=== PATIENT | male | born 1990 | race Caucasian/White ===

== ENCOUNTER 2016-10-10 13:07 | Inpatient (IN) | payer MEDICAID ==
[2016-10-10 13:21] VITALS: BMI 25.8
[2016-10-10 13:50] LABS: EOS % 0.1 % (1.5-5.0); GRAN # 4.84 (1.4-6.5); GRAN % 64.5 % (50.0-68.0); HEMATOCRIT 42.9 % (42.0-52.0); LYMPH # 2.3 (1.2-3.4); LYMPH % 30.9 % (22.0-35.0); MEAN CELL VOLUME 77.2 fl (80.0-105.0); MEAN CORPUSCULAR HGB CONC 37.5 g/dl (31.0-37.0); MEAN PLATELET VOLUME 10.1 fl (7.0-11.0); MONO # 0.3 (0.1-0.6); MONO % 4.5 % (1.0-6.0); RED CELL DISTRIBUTION WIDTH 13.2 % (11.5-14.5); WHITE BLOOD COUNT 7.5 10^3/ul (4.5-11.0)
--- NOTE | 2016-10-10 13:52 | ED PDOC ---
Arrival/HPI - General Chief Complaint: Psychiatric Evaluation Time Seen by Provider: 10/10/16 13:35 Historian: Patient - History of Present Illness Narrative History of Present Illness (Text): 10/10/16 13:49 Chidi Bell is a 26 year old male who presents to the emergency department for evaluation of IV drug use and suicidal ideation. States he used heroin yesterday and plans to end his life by overdosing on heroin. Denies any homicidal ideation. Denies any somatic complaints. Symptom Course: Unchanged Activities at Onset: Light Context: Home Past Medical History - Provider Review Nursing Documentation Reviewed: Yes - Infectious Disease Hx of Infectious Diseases: None - Psychiatric Hx Anxiety: Yes Hx Depression: Yes Hx Substance Use: Yes Other/Comment: substance abuse - Anesthesia Hx Anesthesia: No Family/Social History - Physician Review Nursing Documentation Reviewed: Yes Family/Social History: No Known Family HX Smoking Status: Heavy Smoker > 10 Cigarettes Daily Hx Alcohol Use: Yes Frequency of alcohol use: Daily Hx Substance Use: Yes Substance used: heroine iv -- last used 10/09/2016 Allergies/Home Meds Allergies/Adverse Reactions: Allergies No Known Allergies Allergy (Verified 10/10/16 13:21) Home Medications: Home Meds Medication Instructions Recorded Confirmed No Known Home Med 10/10/16 10/10/16 Review of Systems - Physician Review All systems were reviewed & negative as marked: Yes - Review of Systems Constitutional: Normal. absent: Fatigue, Fevers Respiratory: Normal. absent: SOB, Cough Cardiovascular: Normal. absent: Chest Pain, Palpitations Gastrointestinal: Normal. absent: Abdominal Pain, Diarrhea, Nausea, Vomiting Neurological: Normal. absent: Headache, Dizziness Psychiatric: Suicidal Ideation Physical Exam Vital Signs Reviewed: Yes Vital Signs Temp Pulse Resp BP Pulse Ox 10/10/16 15:30 56 L 12 100/62 99 10/10/16 13:27 97.8 F 71 18 103/72 95 Temperature: Afebrile Blood Pressure: Normal Pulse: Regular Respiratory Rate: Normal Appearance: Positive for: Well-Appearing, Non-Toxic, Comfortable Pain Distress: None Mental Status: Positive for: Alert and Oriented X 3 - Systems Exam Head: Present: Atraumatic, Normocephalic Pupils: Present: PERRL Conjunctiva: Present: Normal Mouth: Present: Moist Mucous Membranes Respiratory/Chest: Present: Clear to Auscultation, Good Air Exchange. No: Respiratory Distress, Accessory Muscle Use Cardiovascular: Present: Regular Rate and Rhythm, Normal S1, S2. No: Murmurs Abdomen: Present: Normal Bowel Sounds. No: Tenderness, Distention, Peritoneal Signs Upper Extremity: Present: Normal Inspection. No: Cyanosis, Edema Lower Extremity: Present: Normal Inspection. No: Edema Neurological: Present: GCS=15, CN II-XII Intact, Speech Normal Skin: Present: Warm, Dry, Normal Color. No: Rashes Psychiatric: Present: Alert, Oriented x 3, Suicidal Ideation. No: Agitated, Homicidal Ideation Medical Decision Making ED Course and Treatment: 10/10/16 13:54 Impression: A 26 year old male who presents to the emergency department complaining of suicidal ideation. Reports last IV heroin use was yesterday. Plan: -- EKG -- Labs -- Drug Screen -- Chest X-ray -- Urinalysis -- Reassess and disposition Progress Notes: 10/10/16 13:55 EKG interpreted by me: Sinus Bradycardia @ 53 bpm. No STT wave changes. 10/10/16 15:12 pt medicaly cleared. - Lab Interpretations Lab Results: 10/10/16 13:35 10/10/16 13:35 Lab Results 10/10/16 14:50: Urine Opiates Screen Positive H, Urine Methadone Screen Negative , Ur Barbiturates Screen Negative, Ur Phencyclidine Scrn Negative, Ur Amphetamines Screen Negative, U Benzodiazepines Scrn Positive H, U Oth Cocaine Metabols Negative, U Cannabinoids Screen Positive H 10/10/16 14:50: Urine Color Yellow, Urine Appearance Sl cloudy, Urine pH 7.0, Ur Specific [place] 1.025, Urine Protein 30 H, Urine Glucose (UA) Negative, Urine Ketones Negative, Urine Blood Negative, Urine Nitrate Negative, Urine Bilirubin Negative, Urine Urobilinogen 1.0 H, Ur Leukocyte Esterase Negative, Urine RBC Negative, Urine WBC Negative, Calcium Oxalate Crystal Occ, Urine Other Mucus 10/10/16 13:35: Alcohol, Quantitative < 10 10/10/16 13:35: Salicylates < 1 L, Acetaminophen < 10.0 L 10/10/16 13:35: Sodium 143, Potassium 4.3, Chloride 105, Carbon Dioxide 25, Anion Gap 17, BUN 9, Creatinine 0.7, Est GFR ( Amer) > 60, Est GFR (Non- Af Amer) > 60, Random Glucose 130 H, Calcium 9.6, Total Bilirubin 0.5, AST 86 H , ALT 207 H, Alkaline Phosphatase 66, Total Protein 8.4 H, Albumin 4.9 H, Globulin 3.5, Albumin/Globulin Ratio 1.4 10/10/16 13:35: WBC 7.5, RBC 5.56, Hgb 16.1, Hct 42.9, MCV 77.2 L, MCH 29.0, MCHC 37.5 H, RDW 13.2, Plt Count 211, MPV 10.1, Gran % 64.5, Lymph % (Auto) 30.9 , [place] % (Auto) 4.5, Eos % (Auto) 0.1 L, Baso % (Auto) 0.0, Gran # 4.84, Lymph # 2.3, [place] # 0.3, Eos # 0.0, Baso # 0.00 - RAD Interpretation Radiology Orders: 10/10/16 13:40 CHEST PORTABLE [RAD] Stat - Medication Orders Current Medication Orders: Discontinued Medications Chlordiazepoxide (Librium) 50 mg PO STAT STA PRN Reason: Protocol Stop: 10/10/16 14:48 Last Admin: 10/10/16 15:48 Dose: 50 mg - Scribe Statement The provider has reviewed the documentation as recorded by the Dejan Noel Provider Attestation: Provider Scribe Attestation: All medical record entries made by the Kbibvernell were at my direction and personally dictated by me. I have reviewed the chart and agree that the record accurately reflects my personal performance of the history, physical exam, medical decision making, and the department course for this patient. I have also personally directed, reviewed, and agree with the discharge instructions and disposition. Disposition/Present on Arrival - Present on Arrival Any Indicators Present on Arrival: No History of DVT/PE: No History of Uncontrolled Diabetes: No Urinary Catheter: No History of Decub. Ulcer: No History Surgical Site Infection Following: None - Disposition Have Diagnosis and Disposition been Completed?: Yes Diagnosis: Depression Disposition: HOSPITALIZED Disposition Time: 15:53 Condition: STABLE
[2016-10-10 13:59] LABS: ALB/GLOB RATIO 1.4 (1.1-1.8); ALKALINE PHOSPHATASE 66 U/L (38-133); ALT/SGPT 207 U/L (7-56); AST/SGOT 86 U/L (15-59); BILIRUBIN,TOTAL 0.5 mg/dL (0.2-1.3); BLOOD UREA NITROGEN 9 mg/dL (7-21); CALCIUM 9.6 mg/dL (8.4-10.5); CARBON DIOXIDE 25 mmol/L (21-33); CHLORIDE 105 mmol/L (98-107); GFR AFRICAN-AMERICAN > 60; GLUCOSE,RANDOM 130 mg/dL (70-110); POTASSIUM 4.3 mmol/L (3.6-5.0); SODIUM 143 mmol/L (132-148); TOTAL PROTEIN 8.4 g/dL (5.8-8.3)
--- NOTE | 2016-10-10 14:14 | RAD ---
HISTORY: psych COMPARISON: No prior. FINDINGS: LUNGS: No active pulmonary disease. PLEURA: No significant pleural effusion identified, no pneumothorax apparent. CARDIOVASCULAR: Normal. OSSEOUS STRUCTURES: No significant abnormalities. VISUALIZED UPPER ABDOMEN: Normal. OTHER FINDINGS: None. IMPRESSION: No active disease.
[2016-10-10 15:10] LABS: URINE BILIRUBIN NEGATIVE (NEGATIVE); URINE BLOOD NEGATIVE (NEGATIVE); URINE GLUCOSE (UA) NEGATIVE (NEGATIVE); URINE KETONE NEGATIVE (NEGATIVE); URINE LEUKOCYTE ESTERASE NEGATIVE Leu/uL (NEGATIVE); URINE PROTEIN 30 mg/dL (<30 mg/dL)
[2016-10-10 15:11] LABS: URINE APPEARANCE SL CLOUDY (CLEAR); URINE COLOR YELLOW (YELLOW)
[2016-10-10 15:12] LABS: URINE RBC NEGATIVE /hpf (0-2); URINE WBC NEGATIVE /hpf (0-6)
[2016-10-10 15:13] LABS: URINE CALCIUM OXALATE CRYSTALS OCC /hpf
[2016-10-10 16:19] VITALS: O2SAT 100
--- NOTE | 2016-10-10 16:25 | CARD ---
APPROVED REPORT EKG Measurement Heart [id number] <Conclusion> Normal sinus rhythm Early repolarization Normal ECG
--- NOTE | 2016-10-10 22:10 | PCM.BM ---
Treatment Plan Problems - Problems identified on initial assessmt anxiety level for substance abuse Date Initiated: 10/10/16 Time Initiated: 22:07 Assessment reference: NA Status: Active Priority: 1 knowledge deficit alc ohol use Date Initiated: 10/10/16 Time Initiated: 22:10 Assessment reference: NA Status: Active Priority: 2 high risk vilence Date Initiated: 10/10/16 Time Initiated: 22:12 Assessment reference: HP, PE, SW, AT, NA, Other Status: Active Priority: 3 Treatment assets and liabiliti Patient Assests: adapts well, ADL independent, negotiates basic needs Patient Liabilities: live alone, relationship conflicts, substance abuse - Milieu Protocol Maintain good personal hygiene: daily Encourage regular showers, daily Remind patient to perform daily oral care, daily Assist patient to perform ADL's Conduct patient checks and document Observation sheet: Q15 minutes Maintain personal safety: every shift Educate patient to report safety concerns to staff, every shift Monitor environment for contraband/sharps Medication safety: Monitor for expected outcome, potential side effects: every shift, Assess barriers to learning: every shift, Assess readiness for medication education: every shift Discharge/Continuing Care - Education Needs Education Needs: Patient Medication, Patient Diagnosis/Disease Process, Patient Coping Skills, Patient Community resources - Discharge Discharge Criteria: Tolerates medication w/o severe side effects, Free of Suicidal thoughts, Normal sleep pattern
[2016-10-11 08:55] LABS: CHOLESTEROL 139 mg/dL (130-200); GLUCOSE,FASTING 107 mg/dL (65-110)
--- NOTE | 2016-10-11 09:12 | PCM.PSYCH ---
Initial Psychiatric Evaluation - Initial Psychiatric Evaluation Type of Admission: Voluntary Legal Status: Capacity Chief Complaint (in patient's own words): depressed, suicidal History of Present Illness and Precipitating Events: Patient is a 26 year old male with history of depression and opiate dependency who presented to the emergency department for suicidal ideation in context of ongoing IV heroin use. ER records indicate that he planned to end his life by overdosing on heroin. I met with patient at bedside. He is alert and oriented x3. Patient indicates increasing feelings of depression and hopelessness in the weeks prior to admission. Endorses symptoms of low energy, lack of motivation, poor sleep and anhedonia. Patient also reported that heroin use also escalated during this time and he had suicidal thoughts of killing himself by overdose. Presently he feels safe and denies any current suicidal or homicidal thoughts. Patient is tolerating current medications and reports that he slept well last night. Doesn't appear to be any discomfort or distress. There were no behavioral issues overnight. PSYCHIATRIC HISTORY Patient denies any prior psychiatric hospital stations Patient denies any history of suicide attempts. Patient saw a private psychiatrist on one occasion in September 2015. He was prescribed medications which he did not take. SOCIAL HISTORY Patient was born and raised in [place]. He is single. He has no children. He lives by himself. He graduated high school. Patient denies any history of legal issues. Patient reports a one-year history of opiate dependency. Indicates that he uses up to 50 bags of heroin IV daily. His last use was two days ago. Patient also reports that he drinks approximately half a fifth of ben daily. Patient has been addicted to alcohol for over two years. Pt smokes about 1 1/2 packs of cigarettes a day. Counseling provided, morbidity and mortality risks were reviewed. Nicotine patch offered which patient accepted. Current Medications: Active Medications Generic Name Dose Route Start Last Admin Trade Name Freq PRN Reason Stop Dose Admin Clonazepam 1 mg 10/11/16 08:00 Klonopin PO BID JOAN Protocol Clonazepam 1 mg 10/10/16 22:00 10/10/16 22:00 Klonopin PO Not Given HS JOAN Lorazepam 0.5 mg 10/10/16 17:35 Ativan PO Q4 PRN Anxiety Protocol Methadone HCl 15 mg 10/11/16 08:00 Methadone PO 10/11/16 08:01 DAILY ONE Methadone HCl 10 mg 10/12/16 08:00 Methadone PO 10/12/16 08:01 DAILY ONE Methadone HCl 5 mg 10/13/16 08:00 Methadone PO 10/13/16 08:01 DAILY ONE Quetiapine Fumarate 100 mg 10/10/16 22:00 10/10/16 21:19 Seroquel PO 100 mg HS JOAN Administration Protocol Sertraline HCl 50 mg 10/11/16 08:00 Zoloft PO DAILY JOAN Trazodone HCl 50 mg 10/10/16 22:00 10/10/16 21:19 Desyrel PO 50 mg HS JOAN Administration Past Psychiatric History - Past Psychiatric History Pertinent Medical Hx (Current Medical&Sleep Prob, Allergies): Allergies Allergy/AdvReac Type Severity Reaction Status Date / Time No Known Allergies Allergy Verified 10/10/16 22:19 No Known Home Med 10/10/16 Mental Status Examination - Personal Presentation Personal Presentation: Looks stated age - Affect Affect: Constricted - Motor Activity Motor Activity: Calm - Reliability in Providing Information Reliability in Providing Information: Fair - Speech Speech: Organized - Mood Mood: Depressed, Anxious - Formal Thought Process Formal Thought Process: No Impairment - Obsessions/Compulsions Obsessions: No Compulsions: No - Cognitive Functions Orientation: Person, Place, Situation Sensorium: Alert Estimate of Intelligence: Average Judgement: Imparied, as evidence by: Poor judgement, Imparied, as evidence by: Lack of insight into illness - Risk Risk: Suicidal, Seizure, Withdrawal, Diminished functioning DSM 5 DX - DSM 5 DSM 5 Diagnosis: Bipolar Depression Opiate Use Disorder, Severe Cannabis Use Disorder Anxiety DO NOS - Recommended/Plan of Treatment Treatment Recommendations and Plan of Treatment: * group, milieu and supportive tx * Seroquel 100 mg HS for mood control * Klonopin 1 mg po TID for anxiety, will also help with alcohol withdrawal * Zoloft 50 mg po daily for depression and anxiety * Trazodone 50 mg po HS for insomnia, off label and depression * Methadone taper, 15 mg on 10/11/16, 10 mg on 10/12/16 and 5 mg on 10/13/16. * Awaiting medical consult * Vitals reviewed and noted below: Selected Entries 10/10/16 10/10/16 10/10/16 13:27 15:30 16:19 Temperature 97.8 F Pulse Rate 71 56 L 68 Respiratory 18 12 18 Rate Blood Pressure 103/72 100/62 106/70 ER LABS AND STUDIES 10/10/16 13:55 EKG interpreted by me: Sinus Bradycardia @ 53 bpm. No STT wave changes. 10/10/16 14:50: Urine Opiates Screen Positive H, Urine Methadone Screen Negative , Ur Barbiturates Screen Negative, Ur Phencyclidine Scrn Negative, Ur Amphetamines Screen Negative, U Benzodiazepines Scrn Positive H, U Oth Cocaine Metabols Negative, U Cannabinoids Screen Positive H 10/10/16 14:50: Urine Color Yellow, Urine Appearance Sl cloudy, Urine pH 7.0, Ur Specific [place] 1.025, Urine Protein 30 H, Urine Glucose (UA) Negative, Urine Ketones Negative, Urine Blood Negative, Urine Nitrate Negative, Urine Bilirubin Negative, Urine Urobilinogen 1.0 H, Ur Leukocyte Esterase Negative, Urine RBC Negative, Urine WBC Negative, Calcium Oxalate Crystal Occ, Urine Other Mucus 10/10/16 13:35: Alcohol, Quantitative < 10 10/10/16 13:35: Salicylates < 1 L, Acetaminophen < 10.0 L 10/10/16 13:35: Sodium 143, Potassium 4.3, Chloride 105, Carbon Dioxide 25, Anion Gap 17, BUN 9, Creatinine 0.7, Est GFR ( Amer) > 60, Est GFR (Non- Af Amer) > 60, Random Glucose 130 H, Calcium 9.6, Total Bilirubin 0.5, AST 86 H , ALT 207 H, Alkaline Phosphatase 66, Total Protein 8.4 H, Albumin 4.9 H, Globulin 3.5, Albumin/Globulin Ratio 1.4 10/10/16 13:35: WBC 7.5, RBC 5.56, Hgb 16.1, Hct 42.9, MCV 77.2 L, MCH 29.0, MCHC 37.5 H, RDW 13.2, Plt Count 211, MPV 10.1, Gran % 64.5, Lymph % (Auto) 30.9 , [place] % (Auto) 4.5, Eos % (Auto) 0.1 L, Baso % (Auto) 0.0, Gran # 4.84, Lymph # 2.3, [place] # 0.3, Eos # 0.0, Baso # 0.00 FLOOR LABS 10/11/16 07:30 Fasting Glucose 107 Triglycerides 94 Cholesterol 139 LDL Cholesterol Direct 81 HDL Cholesterol 37 - Smoking Cessation Smoking Cessation Initiated: Yes
--- NOTE | 2016-10-11 11:18 | CP.PCM.CON ---
<IGNACIA HERNÁNDEZ - Last Filed: 10/11/16 11:05> History of Present Illness - History of Present Illness History of Present Illness: CC: Suicidal ideation HPI: 26 yo M with PMHx of hepatitis C presents with suicidal ideation and IV drug abuse. Pt came to [place] on his own volition. Pt admits to IV heroin abuse and frequent "black-outs". Pt states that he planned to end his life by overdosing on heroin. Pt denies homicidal ideation. Pt c/o of dull body aches and abdominal pain for the last day. Pt complains of nausea and vomiting x1 and diarrhea x6 since yesterday. Pt denies any recent sick contacts. Pt denies any alleviating or aggravating factors. Pt states that his doctor is evaluating and treating him for hepatitis C. Pt denies CP, SOB, chills, fever, WINTERS, vertigo, tremors, constipation, sweats, or dysuria. PMHx: Hepatitis C Surg: Denied FHx: Denied All: NKDA SH: Admits to heavy EtOH use (Bridgette), 2 ppd tobacco use, and IV heroin use Meds: Denied Review of Systems - Review of Systems All systems: reviewed and no additional remarkable complaints except (12 point ROS negative other than what is stated in HPI) Past Patient History - Infectious Disease Hx of Infectious Diseases: None - Past Social History Smoking Status: Heavy Smoker > 10 Cigarettes Daily - CARDIAC Hx Cardiac Disorders: No Hx Hypertension: No - PULMONARY Hx Tuberculosis: No - NEUROLOGICAL HX Cerebrovascular Accident: No Hx Seizures: No - HEENT Hx HEENT Problems: No - RENAL Hx Chronic Kidney Disease: No - ENDOCRINE/METABOLIC Hx Endocrine Disorders: No - HEMATOLOGICAL/ONCOLOGICAL Hx Cancer: No Hx Human Immunodeficiency Virus (HIV): No - INTEGUMENTARY Hx Dermatological Problems: No - MUSCULOSKELETAL/RHEUMATOLOGICAL Hx Musculoskeletal Disorders: No - GASTROINTESTINAL Hx Gastrointestinal Disorders: No - GENITOURINARY/GYNECOLOGICAL Hx Genitourinary Disorders: No Hx Sexually Transmitted Disorders: No - PSYCHIATRIC Hx Anxiety: Yes Hx Substance Use: Yes - SURGICAL HISTORY Hx Surgeries: No - ANESTHESIA Hx Anesthesia: No Meds Allergies/Adverse Reactions: Allergies Allergy/AdvReac Type Severity Reaction Status Date / Time No Known Allergies Allergy Verified 10/10/16 22:19 - Medications Medications: Current Medications Clonazepam (Klonopin) 1 mg PO HS JOAN Clonazepam (Klonopin) 1 mg PO BID JOAN PRN Reason: Protocol Last Admin: 10/11/16 09:02 Dose: 1 mg Lorazepam (Ativan) 0.5 mg PO Q4 PRN; Protocol PRN Reason: Anxiety Methadone HCl (Methadone) 10 mg PO DAILY ONE Stop: 10/12/16 08:01 Methadone HCl (Methadone) 5 mg PO DAILY ONE Stop: 10/13/16 08:01 Nicotine (Nicoderm Cq) 1 patch TD DAILY [facility] Quetiapine Fumarate (Seroquel) 100 mg PO HS [facility] PRN Reason: Protocol Last Admin: 10/10/16 21:19 Dose: 100 mg Sertraline HCl (Zoloft) 50 mg PO DAILY [facility] Last Admin: 10/11/16 09:03 Dose: 50 mg Trazodone HCl (Desyrel) 50 mg PO HS [facility] Last Admin: 10/10/16 21:19 Dose: 50 mg Physical Exam - Constitutional Appears: No Acute Distress - Head Exam Head Exam: ATRAUMATIC, NORMOCEPHALIC - Eye Exam Eye Exam: EOMI, PERRL - ENT Exam ENT Exam: Mucous Membranes Moist - Neck Exam Neck exam: Positive for: Full Rom. Negative for: Lymphadenopathy, Tenderness, Thyromegaly - Respiratory Exam Respiratory Exam: Clear to Auscultation Bilateral. absent: Rales, Rhonchi, Wheezes - Cardiovascular Exam Cardiovascular Exam: RRR. absent: Diastolic murmur, Gallop, Rubs, Systolic Murmur - GI/Abdominal Exam GI & Abdominal Exam: Soft, Tenderness (dull). absent: Distended, Guarding, Rebound - Extremities Exam Extremities exam: Positive for: pedal pulses present Additional comments: Track kiser on b/l antecubital regions - Neurological Exam Neurological exam: Alert, Oriented x3 - Psychiatric Exam Psychiatric exam: Depressed, Suicidal Ideation - Skin Skin Exam: Dry, Intact, Normal Color, Warm Results - Vital Signs Recent Vital Signs: Last Vital Signs Temp 97.8 F 10/10/16 13:27 Pulse 60 10/10/16 21:09 Resp 20 10/10/16 21:09 BP 106/70 10/10/16 16:19 Pulse Ox 100 10/10/16 16:19 - Labs Result Diagrams: 10/10/16 13:35 10/10/16 13:35 Labs: Laboratory Results - last 24 hr 10/11/16 10/11/16 07:30 07:30 Fasting Glucose 107 Triglycerides 94 Cholesterol 139 LDL Cholesterol Direct 81 HDL Cholesterol 37 TSH 3rd Generation 0.85 Assessment & Plan - Assessment and Plan (Free Text) Assessment: 26 yo M with PMHx of hepatitis C and drug abuse admitted for evaluation and treatment of suicidal ideation and IV drug abuse. Plan: 1. Suicidal Ideation - Defer treatment plan to psych - Continue psych medications 2. Substance abuse with possible withdrawal - Ativan 0.5 mg PO Q4H PRN for withdrawal - Cont methadone per psych - Counselled pt on risks of IV use and advised cessation - Monitor for signs of withdrawal 3. Tobacco abuse - Counselled pt on risks of tobacco use and advised cessation - Cont Nicotine patch 4. Alcohol abuse - Counselled pt on risks of EtOH use and advised cessation 5. H/o Hepatitis C, abdominal pain - Regular diet - Elevated LFT's, cont trend - F/u Hep panel - Protonix PO GI/DVT PPx - Protonix PO - Ambulate Pt was seen and discussed in detail with Dr. Shane. <Jordyn Shane - Last Filed: 10/11/16 11:44> Meds - Medications Medications: Current Medications Clonazepam (Klonopin) 1 mg PO HS JOAN Clonazepam (Klonopin) 1 mg PO BID JOAN PRN Reason: Protocol Last Admin: 10/11/16 09:02 Dose: 1 mg Lorazepam (Ativan) 0.5 mg PO Q4 PRN; Protocol PRN Reason: Anxiety Methadone HCl (Methadone) 10 mg PO DAILY ONE Stop: 10/12/16 08:01 Methadone HCl (Methadone) 5 mg PO DAILY ONE Stop: 10/13/16 08:01 Nicotine (Nicoderm Cq) 1 patch TD DAILY JOAN Pantoprazole Sodium (Protonix Ec Tab) 40 mg PO ACB JOAN Quetiapine Fumarate (Seroquel) 100 mg PO HS JOAN PRN Reason: Protocol Last Admin: 10/10/16 21:19 Dose: 100 mg Sertraline HCl (Zoloft) 50 mg PO DAILY JOAN Last Admin: 10/11/16 09:03 Dose: 50 mg Trazodone HCl (Desyrel) 50 mg PO HS JOAN Last Admin: 10/10/16 21:19 Dose: 50 mg Results - Vital Signs Recent Vital Signs: Last Vital Signs Temp 97.8 F 10/10/16 13:27 Pulse 60 10/10/16 21:09 Resp 20 10/10/16 21:09 BP 106/70 10/10/16 16:19 Pulse Ox 100 10/10/16 16:19 - Labs Result Diagrams: 10/10/16 13:35 10/10/16 13:35 Labs: Laboratory Results - last 24 hr 10/11/16 10/11/16 07:30 07:30 Fasting Glucose 107 Triglycerides 94 Cholesterol 139 LDL Cholesterol Direct 81 HDL Cholesterol 37 TSH 3rd Generation 0.85 Attending/Attestation - Attestation I have personally seen and examined this patient.: Yes I have fully participated in the care of the patient.: Yes I have reviewed all pertinent clinical information: Yes Notes (Text): 10/11/16 11:37 MEDICAL CONSULTATION 26 year old male with past medical history of hepatitis C, alcohol and substance abuse who presented with suicidal ideation and evaluation for substance withdrawal. Continue with ativan prn and methadone taper for withdrawal symptoms as per psychiatry. He was counselled on risks of continued substance abuse and on alcohol abstinence. GI complaints likely secondary to withdrawal and ETOH as above. Continue with supportive care. Continue with diet as tolerated and protonix. Elevated LFTs likely secondary to history of alcohol abuse and hepatitis C. Hepatitis panel and HIV testing is ordered. Recommended close follow up as outpatient with his physician in [place] or with [facility] hepatitis clinic. Jordyn Shane MD Hospitalist.
[2016-10-12 06:58] VITALS: BP 106/66; PULSE 55; RESP 19; TEMP 97.6
[2016-10-12] MEDS ORDERED: Pantoprazole 40 mg EC Tab PO SCH (07:30)
--- NOTE | 2016-10-12 15:07 | PCM.PYCHPN ---
Psychiatric Progress Note - Psychiatric Progress Note Patient seen today, length of contact: 25 min Patient Chief Complaint: depressed, suicidal Problems Identified/Issues Discussed: History of Present Illness and Precipitating Events: Patient is a 26 year old male with history of depression and opiate dependency who presented to the emergency department for suicidal ideation in context of ongoing IV heroin use. ER records indicate that he planned to end his life by overdosing on heroin. I met with patient at bedside. He is alert and oriented x3. Patient indicates increasing feelings of depression and hopelessness in the weeks prior to admission. Endorses symptoms of low energy, lack of motivation, poor sleep and anhedonia. Patient also reported that heroin use also escalated during this time and he had suicidal thoughts of killing himself by overdose. Presently he feels safe and denies any current suicidal or homicidal thoughts. Patient is tolerating current medications and reports that he slept well last night. Doesn't appear to be any discomfort or distress. There were no behavioral issues overnight. PSYCHIATRIC HISTORY Patient denies any prior psychiatric hospital stations Patient denies any history of suicide attempts. Patient saw a private psychiatrist on one occasion in September 2015. He was prescribed medications which he did not take. SOCIAL HISTORY Patient was born and raised in [place]. He is single. He has no children. He lives by himself. He graduated high school. Patient denies any history of legal issues. Patient reports a one-year history of opiate dependency. Indicates that he uses up to 50 bags of heroin IV daily. His last use was two days ago. Patient also reports that he drinks approximately half a fifth of ben daily. Patient has been addicted to alcohol for over two years. Pt smokes about 1 1/2 packs of cigarettes a day. Counseling provided, morbidity and mortality risks were reviewed. Nicotine patch offered which patient accepted. Diagnostic Results: Bipolar Depression Opiate Use Disorder, Severe Cannabis Use Disorder Anxiety DO NOS Mental Status Examination - Cognitive Function Orientation: Person, Place, Situation - Mood Mood: Depressed, Anxious - Affect Affect: Constricted - Formal Thought Process Formal Thought Process: No Impairment - Homicidal Ideation Homicidal Ideation: No Goal/Treatment Plan - Goal/Treatment Plan Progress Toward Problem(s) and Goals/Treatment Plan: * group, milieu and supportive tx * Seroquel 100 mg HS for mood control * Klonopin 1 mg po TID for anxiety, will also help with alcohol withdrawal * Zoloft 50 mg po daily for depression and anxiety * Trazodone 50 mg po HS for insomnia, off label and depression * Methadone taper, 15 mg on 10/11/16, 10 mg on 10/12/16 and 5 mg on 10/13/16. * Apppreciate f/u by Dr. Shane on 10/11/16 * Vitals reviewed and noted below: Selected Entries 10/10/16 10/10/16 10/10/16 13:27 15:30 16:19 Temperature 97.8 F Pulse Rate 71 56 L 68 Pulse Rate [ Radial] Pulse Rhythm [ Radial] Pulse Strength [Radial] Pulse Assessment Method [Radial] Respiratory 18 12 18 Rate Blood Pressure 103/72 100/62 106/70 10/10/16 10/11/16 21:09 16:00 Temperature Pulse Rate 61 Pulse Rate [ 60 Radial] Pulse Rhythm [ Regular Radial] Pulse Strength +1=Weak [Radial] Pulse BP Machine Assessment Method [Radial] Respiratory 20 Rate Blood Pressure 109/60 ER LABS AND STUDIES 10/10/16 13:55 EKG interpreted by me: Sinus Bradycardia @ 53 bpm. No STT wave changes. 10/10/16 14:50: Urine Opiates Screen Positive H, Urine Methadone Screen Negative , Ur Barbiturates Screen Negative, Ur Phencyclidine Scrn Negative, Ur Amphetamines Screen Negative, U Benzodiazepines Scrn Positive H, U Oth Cocaine Metabols Negative, U Cannabinoids Screen Positive H 10/10/16 14:50: Urine Color Yellow, Urine Appearance Sl cloudy, Urine pH 7.0, Ur Specific [place] 1.025, Urine Protein 30 H, Urine Glucose (UA) Negative, Urine Ketones Negative, Urine Blood Negative, Urine Nitrate Negative, Urine Bilirubin Negative, Urine Urobilinogen 1.0 H, Ur Leukocyte Esterase Negative, Urine RBC Negative, Urine WBC Negative, Calcium Oxalate Crystal Occ, Urine Other Mucus 10/10/16 13:35: Alcohol, Quantitative < 10 10/10/16 13:35: Salicylates < 1 L, Acetaminophen < 10.0 L 10/10/16 13:35: Sodium 143, Potassium 4.3, Chloride 105, Carbon Dioxide 25, Anion Gap 17, BUN 9, Creatinine 0.7, Est GFR ( Amer) > 60, Est GFR (Non- Af Amer) > 60, Random Glucose 130 H, Calcium 9.6, Total Bilirubin 0.5, AST 86 H , ALT 207 H, Alkaline Phosphatase 66, Total Protein 8.4 H, Albumin 4.9 H, Globulin 3.5, Albumin/Globulin Ratio 1.4 10/10/16 13:35: WBC 7.5, RBC 5.56, Hgb 16.1, Hct 42.9, MCV 77.2 L, MCH 29.0, MCHC 37.5 H, RDW 13.2, Plt Count 211, MPV 10.1, Gran % 64.5, Lymph % (Auto) 30.9 , [place] % (Auto) 4.5, Eos % (Auto) 0.1 L, Baso % (Auto) 0.0, Gran # 4.84, Lymph # 2.3, [place] # 0.3, Eos # 0.0, Baso # 0.00 FLOOR LABS 10/11/16 07:30 Fasting Glucose 107 Triglycerides 94 Cholesterol 139 LDL Cholesterol Direct 81 HDL Cholesterol 37 ~~Patient has 48 hour in effect, expiring 10/12/16 6:45 pm
--- NOTE | 2016-10-12 15:11 | PCM.PYCHDC ---
Mental Status Examination - Mental Status Examination Orientation: Person, Place, Situation Memory: Intact Mood: Neutral Affect: Broad Speech: Appropriate Attention: WNL Concentration: WNL Association: WNL Fund of Knowledge: WNL Formal Thought Process: No Impairment Description of patient's judgement and insight: Fair insight and judgment Psychotic Thoughts and Behaviors: No delusions, no hallucinations, no paranoia Suicidal Ideation: No Current Homicidal Ideation?: No Discharge Summary - Discharge Note Reason for Hospitalization: Patient is a 26 year old male with history of depression and opiate dependency who presented to the emergency department for suicidal ideation in context of ongoing IV heroin use. ER records indicate that he planned to end his life by overdosing on heroin. I met with patient at bedside. He is alert and oriented x3. Patient indicates increasing feelings of depression and hopelessness in the weeks prior to admission. Endorses symptoms of low energy, lack of motivation, poor sleep and anhedonia. Patient also reported that heroin use also escalated during this time and he had suicidal thoughts of killing himself by overdose. Presently he feels safe and denies any current suicidal or homicidal thoughts. Patient is tolerating current medications and reports that he slept well last night. Doesn't appear to be any discomfort or distress. There were no behavioral issues overnight. PSYCHIATRIC HISTORY Patient denies any prior psychiatric hospital stations Patient denies any history of suicide attempts. Patient saw a private psychiatrist on one occasion in September 2015. He was prescribed medications which he did not take. SOCIAL HISTORY Patient was born and raised in [place]. He is single. He has no children. He lives by himself. He graduated high school. Patient denies any history of legal issues. Patient reports a one-year history of opiate dependency. Indicates that he uses up to 50 bags of heroin IV daily. His last use was two days ago. Patient also reports that he drinks approximately half a fifth of ben daily. Patient has been addicted to alcohol for over two years. Pt smokes about 1 1/2 packs of cigarettes a day. Counseling provided, morbidity and mortality risks were reviewed. Nicotine patch offered which patient accepted. Laboratory Data: Abnormal Lab Results 10/11/16 07:30 RPR Nonreactive Laboratory Tests 10/10/16 10/10/16 10/10/16 13:35 13:35 13:35 WBC 7.5 RBC 5.56 Hgb 16.1 Hct 42.9 MCV 77.2 L MCH 29.0 MCHC 37.5 H RDW 13.2 Plt Count 211 MPV 10.1 Gran % 64.5 Lymph % (Auto) 30.9 [place] % (Auto) 4.5 Eos % (Auto) 0.1 L Baso % (Auto) 0.0 Gran # 4.84 Lymph # 2.3 [place] # 0.3 Eos # 0.0 Baso # 0.00 Sodium 143 Potassium 4.3 Chloride 105 Carbon Dioxide 25 Anion Gap 17 BUN 9 Creatinine 0.7 Est GFR ( Amer) > 60 Est GFR (Non-Af Amer) > 60 Random Glucose 130 H Fasting Glucose Calcium 9.6 Total Bilirubin 0.5 AST 86 H ALT 207 H Alkaline Phosphatase 66 Total Protein 8.4 H Albumin 4.9 H Globulin 3.5 Albumin/Globulin Ratio 1.4 Triglycerides Cholesterol LDL Cholesterol Direct HDL Cholesterol TSH 3rd Generation Urine Color Urine Appearance Urine pH Ur Specific [place] Urine Protein Urine Glucose (UA) Urine Ketones Urine Blood Urine Nitrate Urine Bilirubin Urine Urobilinogen Ur Leukocyte Esterase Urine RBC Urine WBC Calcium Oxalate Crystal Urine Other Salicylates < 1 L Urine Opiates Screen Urine Methadone Screen Acetaminophen < 10.0 L Ur Barbiturates Screen Ur Phencyclidine Scrn Ur Amphetamines Screen U Benzodiazepines Scrn U Oth Cocaine Metabols U Cannabinoids Screen Alcohol, Quantitative RPR 10/10/16 10/10/16 10/10/16 13:35 14:50 14:50 WBC RBC Hgb Hct MCV MCH MCHC RDW Plt Count MPV Gran % Lymph % (Auto) [place] % (Auto) Eos % (Auto) Baso % (Auto) Gran # Lymph # [place] # Eos # Baso # Sodium Potassium Chloride Carbon Dioxide Anion Gap BUN Creatinine Est GFR ( Amer) Est GFR (Non-Af Amer) Random Glucose Fasting Glucose Calcium Total Bilirubin AST ALT Alkaline Phosphatase Total Protein Albumin Globulin Albumin/Globulin Ratio Triglycerides Cholesterol LDL Cholesterol Direct HDL Cholesterol TSH 3rd Generation Urine Color Yellow Urine Appearance Sl cloudy Urine pH 7.0 Ur Specific [place] 1.025 Urine Protein 30 H Urine Glucose (UA) Negative Urine Ketones Negative Urine Blood Negative Urine Nitrate Negative Urine Bilirubin Negative Urine Urobilinogen 1.0 H Ur Leukocyte Esterase Negative Urine RBC Negative Urine WBC Negative Calcium Oxalate Crystal Occ Urine Other Mucus Salicylates Urine Opiates Screen Positive H Urine Methadone Screen Negative Acetaminophen Ur Barbiturates Screen Negative Ur Phencyclidine Scrn Negative Ur Amphetamines Screen Negative U Benzodiazepines Scrn Positive H U Oth Cocaine Metabols Negative U Cannabinoids Screen Positive H Alcohol, Quantitative < 10 RPR 10/11/16 10/11/16 10/11/16 07:30 07:30 07:30 WBC RBC Hgb Hct MCV MCH MCHC RDW Plt Count MPV Gran % Lymph % (Auto) [place] % (Auto) Eos % (Auto) Baso % (Auto) Gran # Lymph # [place] # Eos # Baso # Sodium Potassium Chloride Carbon Dioxide Anion Gap BUN Creatinine Est GFR ( Amer) Est GFR (Non-Af Amer) Random Glucose Fasting Glucose 107 Calcium Total Bilirubin AST ALT Alkaline Phosphatase Total Protein Albumin Globulin Albumin/Globulin Ratio Triglycerides 94 Cholesterol 139 LDL Cholesterol Direct 81 HDL Cholesterol 37 TSH 3rd Generation 0.85 Urine Color Urine Appearance Urine pH Ur Specific [place] Urine Protein Urine Glucose (UA) Urine Ketones Urine Blood Urine Nitrate Urine Bilirubin Urine Urobilinogen Ur Leukocyte Esterase Urine RBC Urine WBC Calcium Oxalate Crystal Urine Other Salicylates Urine Opiates Screen Urine Methadone Screen Acetaminophen Ur Barbiturates Screen Ur Phencyclidine Scrn Ur Amphetamines Screen U Benzodiazepines Scrn U Oth Cocaine Metabols U Cannabinoids Screen Alcohol, Quantitative RPR Nonreactive Consultations:: List each consultation separately and include: 1. Reason for request. 2. Findings. 3. Follow-up Consultations: Dr. Shane 10/11/16 Summary of Hospital Course include:: 1. Description of specific treatment plan utilized for patients during their course of treatmen. 2. Summarize the time- course for resolution of acute symptoms and/or regressed behaviors. 3. Describe issues identified and worked on during hospitalization. 4. Describe medication utilized. 5. Describe medical problems identified and treated. 6. Reassessment of suicide risk Summary of Hospital Course: HPI Patient is a 26 year old male with history of depression and opiate dependency who presented to the emergency department for suicidal ideation in context of ongoing IV heroin use. ER records indicate that he planned to end his life by overdosing on heroin. I met with patient at bedside. He is alert and oriented x3. Patient indicates increasing feelings of depression and hopelessness in the weeks prior to admission. Endorses symptoms of low energy, lack of motivation, poor sleep and anhedonia. Patient also reported that heroin use also escalated during this time and he had suicidal thoughts of killing himself by overdose. Presently he feels safe and denies any current suicidal or homicidal thoughts. Patient is tolerating current medications and reports that he slept well last night. Doesn't appear to be any discomfort or distress. There were no behavioral issues overnight. PROGRESS NOTE On day of discharge I interviewed patient at bedside to assess continued stability for discharge on 48 hour letter. Patient is alert and well-oriented to month, year and circumstances. Eye contact is good. Patient feels improved and denies any suicidal thoughts or thoughts to harm others. Affect is calm and appropriately reactive. Patient denies hallucinations and is not responding to internal stimuli. Thought process is clear and coherent. Patient feels comfortable with discharge today and denies any new concerns. Denies acute discomfort or pain. Tolerating medications and denies any issues with them. Delusions and paranoia were not elicited on day of discharge. - Final Diagnosis (DSM 5) Condition upon Discharge: FAIR DSM 5: Bipolar Depression Opiate Use Disorder, Severe Cannabis Use Disorder Benzo Use Disorder Anxiety DO NOS Disposition: AGAINST MEDICAL ADVICE Follow-up Treatment Plan: ~~Patient has 48 hour in effect, expiring 10/12/16 6:45 pm, patient left AMA, no f/u provided Tapering dose of klonopin called into [facility] on 10/12/16 klonopin 1 mg po bid x7 days then klonopin 1 mg po daily x7 days, total of 14 tablets, no RF for alcohol withdrawal - Smoking Cessation Smoking Cessation Medication prescribed: No Reason for not providing: left AMA - Antipsychotic Medications Pt discharged on 2 or more routine antipsychotic medications: No
== END 2016-10-12 16:34 | disposition home or self-care (01) | DRG 430 ==
LOC: ED 13:07 → MERGE 15:11 → PSYC 15:11
PROVIDERS: ADMIT Psychiatry & Neurology Addiction Medicine; ATTEND Psychiatry & Neurology Addiction Medicine
DX: F31.9 Bipolar disorder, unspecified (principal); R45.851 Suicidal ideations; F11.10 Opioid abuse, uncomplicated; F13.90 Sedative, hypnotic, or anxiolytic use, unspecified, uncomplicated; B19.20 Unspecified viral hepatitis C without hepatic coma; F12.90 Cannabis use, unspecified, uncomplicated; F41.9 Anxiety disorder, unspecified; F17.210 Nicotine dependence, cigarettes, uncomplicated; F10.20 Alcohol dependence, uncomplicated; R40.2412 Glasgow coma scale score 13-15, at arrival to emergency department; R00.1 Bradycardia, unspecified

== ENCOUNTER 2017-07-30 00:47 | Inpatient (IN) | payer MEDICAID, OTHER ==
[2017-07-30 00:47] VITALS: BMI 25.8
--- NOTE | 2017-07-30 01:15 | ED PDOC ---
Arrival/HPI - General Chief Complaint: Psychiatric Evaluation Time Seen by Provider: 07/30/17 00:49 Historian: Patient - History of Present Illness Narrative History of Present Illness (Text): 07/30/17 01:10 Chidi Bell is a 27 year old male, whose past medical history includes depression and IV drug abuse, who presents to the Emergency department complaining of depression and suicidal ideation. Patient states he has been feeling depressed, notes he has been non-compliant with his medication because he recently moved back to [place]. Patient states he is also experiencing suicidal ideation and he is scared to drive his car because he may harm himself. Patient states he last injected heroin yesterday. Patient denies any homicidal ideation, fever, chills, chest pain, shortness of breath, nausea, vomiting, diarrhea, urinary symptoms, back pain, neck pain, headache, dizziness , or any other complaints. Symptom Onset: Gradual Symptom Course: Unchanged Activities at Onset: Light Context: Home Past Medical History - Provider Review Nursing Documentation Reviewed: Yes - Infectious Disease Hx of Infectious Diseases: None - Cardiac Hx Cardiac Disorders: No - Pulmonary Hx Respiratory Disorders: No - Neurological Hx Neurological Disorder: No - HEENT Hx HEENT Disorder: No - Renal Hx Renal Disorder: No - Endocrine/Metabolic Hx Endocrine Disorders: No - Hematological/Oncological Hx Blood Disorders: No - Integumentary Hx Dermatological Disorder: No - Musculoskeletal/Rheumatological Hx Musculoskeletal Disorders: Yes - Gastrointestinal Hx Gastrointestinal Disorders: No - Genitourinary/Gynecological Hx Genitourinary Disorders: No - Psychiatric Hx Psychophysiologic Disorder: Yes Hx Anxiety: Yes Hx Depression: Yes Hx Substance Use: Yes (Heroin) - Anesthesia Hx Anesthesia: No Family/Social History - Physician Review Nursing Documentation Reviewed: Yes Family/Social History: Unknown Family HX Smoking Status: Current Some Days Smoker Hx Alcohol Use: Yes Hx Substance Use: Yes (Heroin) Substance used: heroine iv -- last used 10/09/2016 Allergies/Home Meds Allergies/Adverse Reactions: Allergies No Known Allergies Allergy (Verified 07/30/17 00:58) Home Medications: Home Meds Medication Instructions Recorded Confirmed Unobtainable 07/30/17 07/30/17 Review of Systems - Physician Review All systems were reviewed & negative as marked: Yes - Review of Systems Constitutional: Normal. absent: Fevers Eyes: Normal ENT: Normal Respiratory: Normal. absent: SOB, Cough Cardiovascular: Normal. absent: Chest Pain Gastrointestinal: Normal. absent: Abdominal Pain, Diarrhea, Nausea, Vomiting Genitourinary Male: Normal. absent: Dysuria, Frequency, Hematuria, Urinary Output Changes Musculoskeletal: Normal. absent: Back Pain, Neck Pain Skin: Normal. absent: Rash Neurological: Normal. absent: Headache, Dizziness Endocrine: Normal Hemo/Lymphatic: Normal Psychiatric: Depression, Suicidal Ideation Physical Exam Vital Signs Reviewed: Yes Vital Signs Temp Pulse Resp BP Pulse Ox 07/30/17 03:35 82 20 105/70 98 07/30/17 01:08 98.2 F 79 16 98/61 L 97 Temperature: Afebrile Blood Pressure: Normal Pulse: Regular Respiratory Rate: Normal Appearance: Positive for: Well-Appearing, Non-Toxic, Comfortable Pain Distress: None Mental Status: Positive for: Alert and Oriented X 3 - Systems Exam Head: Present: Atraumatic, Normocephalic Pupils: Present: PERRL Extroacular Muscles: Present: EOMI Conjunctiva: Present: Normal Mouth: Present: Moist Mucous Membranes Neck: Present: Normal Range of Motion Respiratory/Chest: Present: Clear to Auscultation, Good Air Exchange. No: Respiratory Distress, Accessory Muscle Use Cardiovascular: Present: Regular Rate and Rhythm, Normal S1, S2. No: Murmurs Abdomen: No: Tenderness, Distention, Peritoneal Signs Back: Present: Normal Inspection Upper Extremity: Present: Normal Inspection. No: Cyanosis, Edema Lower Extremity: Present: Normal Inspection. No: Edema Neurological: Present: GCS=15, CN II-XII Intact, Speech Normal Skin: Present: Warm, Dry, Normal Color. No: Rashes Psychiatric: Present: Alert, Oriented x 3, Normal Insight, Normal Concentration Medical Decision Making ED Course and Treatment: 07/30/17 01:10 Impression: 27 year old male complaining of depression and suicidal ideation. Differential Diagnosis included but are not limited to: depression Plan: -- EKG -- Chest X-ray -- Labs, alcohol level -- Urinalysis, urine drug screen -- Reassess and disposition Progress Notes: Reviewed EKG, NSR at 66 bpm. Early repolarization. No acute changes. 07/30/17 02:28 Chest X-ray reviewed, shows no acute processes. 07/30/17 04:40 Pt seen and evaluated by ELAINE Martinez, who discussed case with psychiatrist dean of instruction. Pt to be admitted to Behavioral Health under Dr. Bagley's service. pt agreeable to with plan. - Lab Interpretations Lab Results: 07/30/17 02:10 07/30/17 02:10 Lab Results 07/30/17 04:18: Urine Opiates Screen Positive H, Urine Methadone Screen Negative , Ur Barbiturates Screen Negative, Ur Phencyclidine Scrn Negative, Ur Amphetamines Screen Negative, U Benzodiazepines Scrn Negative, U Oth Cocaine Metabols Positive H, U Cannabinoids Screen Positive H 07/30/17 04:18: Urine Color Yellow, Urine Appearance Clear, Urine pH 6.0, Ur Specific [place] >= 1.030, Urine Protein Trace H, Urine Glucose (UA) Negative, Urine Ketones Negative, Urine Blood Negative, Urine Nitrate Negative, Urine Bilirubin Negative, Urine Urobilinogen 2.0 H, Ur Leukocyte Esterase Negative, Urine RBC 0 - 2, Urine WBC 2 - 5, Ur Epithelial Cells 0 - 2, Urine Bacteria Rare 07/30/17 02:10: Alcohol, Quantitative < 10 07/30/17 02:10: Salicylates < 1 L, Acetaminophen < 10.0 L 07/30/17 02:10: Sodium 142, Potassium 4.1, Chloride 100, Carbon Dioxide 31, Anion Gap 15, BUN 11, Creatinine 0.8, Est GFR ( Amer) > 60, Est GFR (Non- Af Amer) > 60, Random Glucose 110, Calcium 9.0, Magnesium 2.2, Total Bilirubin 0.5, AST 79 H D, ALT 145 H, Alkaline Phosphatase 57, Total Protein 7.5, Albumin 4.0, Globulin 3.6, Albumin/Globulin Ratio 1.1 07/30/17 02:10: WBC 7.6, RBC 4.99, Hgb 13.5 L D, Hct 37.1 L, MCV 74.3 L, MCH 27.1, MCHC 36.4, RDW 13.9, Plt Count 176, MPV 9.8, Gran % 43.7 L, Lymph % (Auto ) 47.3 H, [place] % (Auto) 7.4 H, Eos % (Auto) 1.3 L, Baso % (Auto) 0.3, Gran # 3.30, Lymph # (Auto) 3.6 H, [place] # (Auto) 0.6, Eos # (Auto) 0.1, Baso # (Auto) 0.02 I have reviewed the lab results: Yes - RAD Interpretation Radiology Orders: 07/30/17 01:00 CHEST PORTABLE [RAD] Stat Dental Hygiene Professor: ED Physician - EKG Interpretation Interpreted by ED Physician: Yes Type: 12 lead EKG - Medication Orders Current Medication Orders: Discontinued Medications Acetaminophen (Tylenol 325mg Tab) 650 mg PO Q6H PRN PRN Reason: Pain, moderate (4-7) Last Admin: 08/01/17 02:00 Dose: 650 mg [facility] Pain/Vitals Document 08/01/17 02:00 WP (Rec: 08/01/17 02:00 WP [id number]) Pain Reassessment Is This A Pain ReAssessment? No Sleep Is patient sleeping during reassessment? No Presence of Pain Presence of Pain Yes Pain Scale Used Pain Scale Used Numeric Location Intensity 10 Scale Used Numeric Pain Behavior Screaming Re-Assess: [facility] Pain/Vitals Document 08/01/17 03:00 WP (Rec: 08/01/17 04:09 WP [id number]) Pain Reassessment Is This A Pain ReAssessment? Yes Sleep Is patient sleeping during reassessment? No Presence of Pain Presence of Pain No Al Hydrox/Mg Hydrox/Simethicone (Maalox Plus 30 Ml) 30 ml PO DAILY PRN PRN Reason: Indigestion / Heartburn Citalopram Hydrobromide (Celexa) 10 mg PO DAILY [facility] Last Admin: 08/01/17 08:09 Dose: 10 mg Clindamycin HCl (Cleocin) 150 mg PO Q6 JOAN PRN Reason: Protocol Last Admin: 08/01/17 06:06 Dose: 150 mg Clonidine HCl (Catapres) 0.1 mg PO Q12 PRN PRN Reason: Opiate Withdrawal Last Admin: 08/01/17 08:09 Dose: 0.1 mg Folic Acid (Folic Acid) 1 mg PO DAILY [facility] Last Admin: 08/01/17 08:08 Dose: 1 mg Gabapentin (Neurontin) 300 mg PO QID JOAN PRN Reason: Protocol Last Admin: 08/01/17 08:09 Dose: 300 mg Lorazepam (Ativan) 2 mg PO Q6H PRN; Protocol PRN Reason: alcohol withdrawal or anxiety Last Admin: 07/31/17 03:19 Dose: 2 mg Behavioural Document 07/31/17 03:19 WP (Rec: 07/31/17 03:19 WP [id number]) Maintenance Maintenance Dose Yes Re-Assess: Reassess Psych Meds Document 07/31/17 04:19 WP (Rec: 07/31/17 05:05 WP [id number]) Reassess Psych Med Effective Lorazepam (Ativan) 2 mg IM Q6H PRN; Protocol PRN Reason: SEVERE AGITATION Last Admin: 08/01/17 01:21 Dose: 2 mg IM Administration Charges Document 08/01/17 01:21 WP (Rec: 08/01/17 01:22 WP [id number]) Injection Site MAR Injection Site Right Deltoid Charges for Administration # of IM Administrations 1 Behavioural Document 08/01/17 01:21 WP (Rec: 08/01/17 01:22 WP [id number]) Behavior Behavior for Medication: Continuous crying/screaming/ yelling Behavior Comment withdrawals, body shaking Re-Assess: Reassess Psych Meds Document 08/01/17 01:51 WP (Rec: 08/01/17 04:08 WP [id number]) Reassess Psych Med Effective Lorazepam (Ativan) 2 mg PO Q6H JOAN PRN Reason: Protocol Last Admin: 08/01/17 06:06 Dose: 2 mg Behavioural Document 08/01/17 06:06 WP (Rec: 08/01/17 06:06 WP [id number]) Maintenance Maintenance Dose Yes Lorazepam (Ativan) 2 mg PO Q8 JOAN PRN Reason: Protocol Magnesium Hydroxide (Milk Of Magnesia) 30 ml PO DAILY PRN PRN Reason: Constipation Multivitamins/Minerals (Therapeutic-M Tab) 1 tab PO DAILY [facility] Last Admin: 08/01/17 08:09 Dose: 1 tab Nicotine (Nicoderm Cq) 1 patch TD DAILY [facility] Last Admin: 08/01/17 08:08 Dose: 1 patch Ondansetron HCl (Zofran Odt) 4 mg PO Q8H PRN PRN Reason: Nausea/Vomiting Last Admin: 07/31/17 03:20 Dose: 4 mg Quetiapine Fumarate (Seroquel) 25 mg PO BID JOAN PRN Reason: Protocol Last Admin: 07/31/17 08:16 Dose: 25 mg Quetiapine Fumarate (Seroquel) 50 mg PO HS [facility] PRN Reason: Protocol Last Admin: 07/30/17 23:48 Dose: Not Given Non-Admin Reason: Patient Asleep Quetiapine Fumarate (Seroquel) 100 mg PO AMHS [facility] PRN Reason: Protocol Last Admin: 08/01/17 09:19 Dose: 100 mg Thiamine HCl (Vitamin B1 Tab) 100 mg PO DAILY [facility] Last Admin: 08/01/17 08:09 Dose: 100 mg Tramadol HCl (Ultram) 50 mg PO TID [facility] Last Admin: 07/31/17 13:15 Dose: 50 mg MAR Pain Assessment Document 07/31/17 13:15 AK (Rec: 07/31/17 13:15 [facility] [id number]) Pain Reassessment Is this a pain reassessment? Yes Ziprasidone (Geodon Inj) 20 mg IM Q6H PRN; Protocol PRN Reason: Agitation/psychosis Last Admin: 08/01/17 02:00 Dose: 20 mg IM Administration Charges Document 08/01/17 02:00 WP (Rec: 08/01/17 02:05 [id number] Injection Site MAR Injection Site Right Gluteus [place] Charges for Administration # of IM Administrations 1 Behavioural Document 08/01/17 02:00 WP (Rec: 08/01/17 02:05 WP [id number]) Behavior Behavior for Medication: Continuous crying/screaming/ yelling Re-Assess: Reassess Psych Meds Document 08/01/17 02:30 WP (Rec: 08/01/17 04:08 WP [id number]) Reassess Psych Med Effective Ziprasidone (Geodon Cap) 20 mg PO Q6H PRN; Protocol PRN Reason: agitation/psychosis Last Admin: 08/01/17 08:09 Dose: 20 mg Zolpidem Tartrate (Ambien) 10 mg PO HS PRN; Protocol PRN Reason: Insomnia Last Admin: 07/31/17 21:00 Dose: 10 mg Behavioural Document 07/31/17 21:00 WP (Rec: 07/31/17 21:01 WP [id number]) Maintenance Maintenance Dose Yes Re-Assess: Reassess Psych Meds Document 07/31/17 22:00 WP (Rec: 07/31/17 22:15 WP [id number]) Reassess Psych Med Effective - Scribe Statement The provider has reviewed the documentation as recorded by the Kbibvernell Knight Provider Scribe Attestation: All medical record entries made by the Scribe were at my direction and personally dictated by me. I have reviewed the chart and agree that the record accurately reflects my personal performance of the history, physical exam, medical decision making, and the department course for this patient. I have also personally directed, reviewed, and agree with the discharge instructions and disposition. Disposition/Present on Arrival - Present on Arrival Any Indicators Present on Arrival: No History of DVT/PE: No History of Uncontrolled Diabetes: No Urinary Catheter: No History of Decub. Ulcer: No History Surgical Site Infection Following: None - Disposition Have Diagnosis and Disposition been Completed?: Yes Diagnosis: Depression Disposition: HOSPITALIZED Disposition Time: 04:40 Condition: GOOD
[2017-07-30 02:36] LABS: BASO # 0.02 K/mm3 (0.0-2.0); BASO % 0.3 % (0.0-3.0); EOS # 0.1 (0.0-0.7); EOS % 1.3 % (1.5-5.0); GRAN # 3.3 (1.4-6.5); GRAN % 43.7 % (50.0-68.0); LYMPH # 3.6 (1.2-3.4); LYMPH % 47.3 % (22.0-35.0); MEAN CELL VOLUME 74.3 fl (80.0-105.0); MEAN CORPUSCULAR HEMOGLOBIN 27.1 pg (25.0-35.0); MEAN CORPUSCULAR HGB CONC 36.4 g/dl (31.0-37.0); MEAN PLATELET VOLUME 9.8 fl (7.0-11.0); MONO # 0.6 (0.1-0.6); MONO % 7.4 % (1.0-6.0); RBC 4.99 10^6/uL (3.5-6.1); RED CELL DISTRIBUTION WIDTH 13.9 % (11.5-14.5); WHITE BLOOD COUNT 7.6 10^3/ul (4.5-11.0)
[2017-07-30 02:38] LABS: HEMOGLOBIN 13.5 g/dL (14.0-18.0)
[2017-07-30 02:43] LABS: ACETAMINOPHEN < 10.0 ug/ml (10.0-20.0); SALICYLATE < 1 mg/dL (2.0-20.0)
[2017-07-30 02:44] LABS: ALB/GLOB RATIO 1.1 (1.1-1.8); ALT/SGPT 145 U/L (7-56); AST/SGOT 79 U/L (17-59); BLOOD UREA NITROGEN 11 mg/dL (7-21); GFR AFRICAN-AMERICAN > 60; GFR NON-AFRICAN AMERICAN > 60
[2017-07-30 04:43] LABS: URINE BILIRUBIN NEGATIVE (NEGATIVE); URINE BLOOD NEGATIVE (NEGATIVE); URINE GLUCOSE (UA) NEGATIVE (NEGATIVE); URINE LEUKOCYTE ESTERASE NEGATIVE Leu/uL (NEGATIVE); URINE PROTEIN TRACE mg/dL (<30 mg/dL)
[2017-07-30 04:51] LABS: URINE APPEARANCE CLEAR (CLEAR); URINE COLOR YELLOW (YELLOW)
[2017-07-30 04:54] LABS: BARBITURATES, UR NEGATIVE (NEGATIVE); PHENCYCLIDINE, UR NEGATIVE (NEGATIVE)
[2017-07-30 04:58] LABS: URINE RBC 0 - 2 /hpf (0-2)
[2017-07-30 05:05] LABS: BENZODIAZEPINES, UR NEGATIVE (NEGATIVE); OPIATES, UR POSITIVE (NEGATIVE)
[2017-07-30 05:07] LABS: URINE BACTERIA RARE (NEG); URINE EPITHELIAL CELLS 0 - 2 /hpf (0-5)
[2017-07-30 05:47] VITALS: O2SAT 99
[2017-07-30] MEDS ORDERED: Alum-Mag Hydrox-Simethicone Susp (30 mL) PO PRN (06:41)
[2017-07-30] MEDS ORDERED: Magnesium Hydroxide Susp 30 ml UD PO PRN (06:41)
--- NOTE | 2017-07-30 08:05 | RAD ---
HISTORY: pes COMPARISON: Portable chest 10/10/2016. FINDINGS: LUNGS: No active pulmonary disease. PLEURA: No significant pleural effusion identified, no pneumothorax apparent. CARDIOVASCULAR: Normal. OSSEOUS STRUCTURES: No significant abnormalities. VISUALIZED UPPER ABDOMEN: Normal. OTHER FINDINGS: None. IMPRESSION: No interval acute cardiopulmonary disease appreciated.
[2017-07-30 09:22] LABS: HDL CHOLESTEROL 38 mg/dL (29-60)
[2017-07-30 09:33] LABS: LDL CHOLESTEROL 58 mg/dL (0-129)
--- NOTE | 2017-07-30 12:49 | CARD ---
APPROVED REPORT EKG Measurement Heart [id number] <Conclusion> Normal sinus rhythm Possible Left atrial enlargement Early repolarization No change
--- NOTE | 2017-07-30 15:41 | PCM.BM ---
<Barry Wade - Last Filed: 07/30/17 15:38> Treatment Plan Problems - Problems identified on initial assessmt Hopelessness/Helplessness Date Initiated: 07/30/17 Time Initiated: 09:00 Assessment reference: NA Status: Active Priority: 1 Comment: lack of motivation/does not know what to do Ineffecting coping skills Date Initiated: 07/30/17 Time Initiated: 09:00 Assessment reference: NA Status: Active Priority: 2 Comment: poor coping skills/negative alternative. Medication non-compliance Date Initiated: 07/30/17 Time Initiated: 09:00 Assessment reference: NA Status: Active Priority: 3 Comment: Nonadherent with medications and follow ups. Altered sleep pattern Date Initiated: 07/30/17 Time Initiated: 09:00 Assessment reference: NA Status: Active Priority: 4 Comment: 2-3 hour of sleep at night Drug abuse Date Initiated: 07/30/17 Time Initiated: 09:00 Assessment reference: NA Status: Active Priority: 5 Comment: Heroine/opiate/cocaine and marijuana Treatment assets and liabiliti Patient Assests: adapts well, cooperative, insightful, self-reliant, ADL independent, physically healthy, negotiates basic needs Patient Liabilities: live alone, financial problems, poor support system, substance abuse - Milieu Protocol Maintain good personal hygiene: every shift Encourage regular showers, every shift Remind patient to perform daily oral care, every shift Assist patient to perform ADL's Conduct patient checks and document Observation sheet: Q15 minutes Maintain personal safety: every shift Educate patient to report safety concerns to staff, every shift Monitor environment for contraband/sharps Medication safety: Monitor for expected outcome, potential side effects: every shift, Assess barriers to learning: every shift, Assess readiness for medication education: every shift Family Contact Family contact: Patient declines to allow family contact at present Discharge/Continuing Care - Education Needs Education Needs: Patient Medication, Patient Diagnosis/Disease Process, Patient Coping Skills, Patient Anger Management skills, Patient Placement options, Patient Community resources, Patient Activities of Daily Living, Patient Nutrition, Patient Health Practices/Safety, Patient Personal Hygiene/Grooming - Discharge Discharge Criteria: Tolerates medication w/o severe side effects, Free of Suicidal thoughts, Normal sleep pattern, No longer exhibiting s/s of withdrawal , Reduction of target symptoms <Romina Bagley - Last Filed: 07/30/17 16:10> - Diagnosis (1) Depression Status: Acute Interventions: 07/30/17 16:11 Psychoeducation Psychopharmacology/adjustment of medications as needed/ monitoring possible side effects Evaluate pt on daily basis Compliance with medications and follow up appointments Suicide and homicide risk assessment and prevention Relapse prevention Reduction of symptoms Improve functional status Family involvement As outpatient: cognitive behavioral therapy (2) Opioid use disorder, severe, dependence Status: Acute Interventions: 07/30/17 16:12 Monitoring withdrawal symptoms Medical detoxification Pharmacotherapy for alcohol/benzos/opioid dependence Maintaining sobriety Relapse prevention Possible rehabilitation Motivational interviewing 12-step programs: AA meetings <Leatha Recinos Y - Last Filed: 07/31/17 16:13> Family Contact Family contact: Patient declines to allow family contact at present
--- NOTE | 2017-07-30 16:06 | PCM.PSYCH ---
Initial Psychiatric Evaluation - Initial Psychiatric Evaluation Type of Admission: Voluntary Legal Status: Capacity Chief Complaint (in patient's own words): "I don't feel good, I was using 50 bags of heroin a day, what?....sorry, I didn' t sleep for days.....". pt was keep falling asleep during the interview. Patient's Reaction to Hospitalization: pt was admitted for evaluation of depressive symptoms, possible suicidal ideation, inability to function, pt also was using IV heroin. History of Present Illness and Precipitating Events: shortly pt is a 26 year old male with history of depression and opiate dependency who presented to the emergency department for suicidal ideation in context of ongoing IV heroin use/withdrawals, pt also reported hearing voices, telling him to harm self, pt has chronic noncompliant with medications and follow up appts, pt was d/c from this unit 10/12/16 AMA. pt requires further evaluation and stabilization, meds initiation and titration, pt in high risk of harming self in context of drug use/withdrawals, will need observation and stabilization. pt was seen in his room, hygiene is marginal, no eye contact, pt was falling asleep durign the interview. good ADLs. pt is poor historian due to his withdrawals and sleepiness. pt reported being depressed, suicidal ideation with the plan to OD or to crush a car. pt reported command type hallucinations. pt reported using 50bags of heroin a day IV. Patient indicates increasing feelings of depression and hopelessness in the weeks prior to admission. Endorses symptoms of low energy, lack of motivation, poor sleep and anhedonia. As per staff there were no behavioral issues overnight. PSYCHIATRIC HISTORY Patient has one prior admission to this unit 10/12/17, was d/c AMA Patient denies any history of suicide attempts. Patient saw a private psychiatrist on one occasion in September 2015. He was prescribed medications which he did not take. SOCIAL HISTORY Patient was born and raised in [place]. He is single. He has no children. He lives by himself. He graduated high school. Patient denies any history of legal issues. Patient reports a two-year history of opiate dependency. Indicates that he uses up to 50 bags of heroin IV daily. His last use was a day ago. Patient denied using alcohol, but has h/o alcohol addiction. Pt smokes about 1 1/2 packs of cigarettes a day. Counseling provided, morbidity and mortality risks were reviewed. Nicotine patch offered which patient accepted. pt was not receptive to counseling because of his condition. family h/o; unknown medical h/o: unknown, pt has some dental abscess/inflammation, will call for the medical team denied h/o abuse. 07/30/17 02:10 07/30/17 02:10 Lab Results 07/30/17 06:40: TSH 3rd Generation 0.92 07/30/17 06:39: Triglycerides 70, Cholesterol 116 L, LDL Cholesterol Direct 58, HDL Cholesterol 38 07/30/17 04:18: Urine Opiates Screen Positive H, Urine Methadone Screen Negative , Ur Barbiturates Screen Negative, Ur Phencyclidine Scrn Negative, Ur Amphetamines Screen Negative, U Benzodiazepines Scrn Negative, U Oth Cocaine Metabols Positive H, U Cannabinoids Screen Positive H 07/30/17 04:18: Urine Color Yellow, Urine Appearance Clear, Urine pH 6.0, Ur Specific [place] >= 1.030, Urine Protein Trace H, Urine Glucose (UA) Negative, Urine Ketones Negative, Urine Blood Negative, Urine Nitrate Negative, Urine Bilirubin Negative, Urine Urobilinogen 2.0 H, Ur Leukocyte Esterase Negative, Urine RBC 0 - 2, Urine WBC 2 - 5, Ur Epithelial Cells 0 - 2, Urine Bacteria Rare 07/30/17 02:10: Alcohol, Quantitative < 10 07/30/17 02:10: Salicylates < 1 L, Acetaminophen < 10.0 L 07/30/17 02:10: Sodium 142, Potassium 4.1, Chloride 100, Carbon Dioxide 31, Anion Gap 15, BUN 11, Creatinine 0.8, Est GFR ( Amer) > 60, Est GFR (Non- Af Amer) > 60, Random Glucose 110, Calcium 9.0, Magnesium 2.2, Total Bilirubin 0.5, AST 79 H D, ALT 145 H, Alkaline Phosphatase 57, Total Protein 7.5, Albumin 4.0, Globulin 3.6, Albumin/Globulin Ratio 1.1 07/30/17 02:10: WBC 7.6, RBC 4.99, Hgb 13.5 L D, Hct 37.1 L, MCV 74.3 L, MCH 27.1, MCHC 36.4, RDW 13.9, Plt Count 176, MPV 9.8, Gran % 43.7 L, Lymph % (Auto ) 47.3 H, [place] % (Auto) 7.4 H, Eos % (Auto) 1.3 L, Baso % (Auto) 0.3, Gran # 3.30, Lymph # (Auto) 3.6 H, [place] # (Auto) 0.6, Eos # (Auto) 0.1, Baso # (Auto) 0.02 Vital Signs Temp Pulse Pulse Resp BP Pulse Ox 07/30/17 14:59 63 137/94 H 07/30/17 08:00 64 20 07/30/17 06:10 97.9 F 64 20 109/72 07/30/17 05:45 99 07/30/17 03:35 82 20 105/70 98 07/30/17 01:08 98.2 F 79 16 98/61 L 97 Current Medications: Active Medications Generic Name Dose Route Start Last Admin Trade Name Freq PRN Reason Stop Dose Admin Acetaminophen 650 mg 07/30/17 06:41 Tylenol 325mg Tab PO Q6H PRN Pain, moderate (4-7) Al Hydrox/Mg Hydrox/Simethicone 30 ml 07/30/17 06:41 Maalox Plus 30 Ml PO DAILY PRN Indigestion / Heartburn Citalopram Hydrobromide 10 mg 07/30/17 08:00 07/30/17 09:13 Celexa PO 10 mg DAILY JOAN Administration Clonidine HCl 0.1 mg 07/30/17 07:02 Catapres PO Q12 PRN Opiate Withdrawal Haloperidol 5 mg 07/30/17 07:13 Haldol PO Q6H PRN Agitation Protocol Haloperidol Lactate 5 mg 07/30/17 07:11 Haldol IM Q6H PRN SEVERE AGITATION Protocol Lorazepam 2 mg 07/30/17 07:05 Ativan PO Q6H PRN alcohol withdrawal or anxiety Protocol Lorazepam 2 mg 07/30/17 07:08 Ativan IM Q6H PRN SEVERE AGITATION Protocol Magnesium Hydroxide 30 ml 07/30/17 06:41 Milk Of Magnesia PO DAILY PRN Constipation Quetiapine Fumarate 25 mg 07/30/17 08:00 07/30/17 09:13 Seroquel PO 25 mg BID JOAN Administration Protocol Quetiapine Fumarate 50 mg 07/30/17 22:00 Seroquel PO HS JOAN Protocol Past Psychiatric History - Past Psychiatric History Previous Treatment History: Inpatient Prior Professional Help: see HPI Prior Psychiatric Treatment: see HPI At what hospital: see HPI Duration: see HPI Nature of Treatment: see HPI Explanation of prior treatment: see HPI History of Abuse: see HPI History of ETOH/Drug Use: see HPI History of Family Illness: see HPI Pertinent Medical Hx (Current Medical&Sleep Prob, Allergies): Allergies Allergy/AdvReac Type Severity Reaction Status Date / Time No Known Allergies Allergy Verified 07/30/17 00:58 Unobtainable 07/30/17 Review of Systems - Review of Systems Systems not reviewed;Unavailable: Acuity of Condition - EENT Eyes: As Per HPI Ears: As Per HPI Nose/Mouth/Throat: As Per HPI - Cardiovascular Cardiovascular: As Per HPI - Respiratory Respiratory: As Per HPI - Gastrointestinal Gastrointestinal: As Per HPI - Genitourinary Genitourinary: As Per HPI - Reproductive: Male Reproductive:Male: As Per HPI - Musculoskeletal Musculoskeletal: As Par HPI - Integumentary Integumentary: As Per HPI - Neurological Neurological: As Per HPI - Psychiatric Psychiatric: As Per HPI - Endocrine Endocrine: As Per HPI - Hematologic/Lymphatic Hematologic: As Per HPI Mental Status Examination - Personal Presentation Personal Presentation: Looks stated age - Affect Affect: Flat - Motor Activity Motor Activity: Psychomotor Retardation - Reliability in Providing Information Reliability in Providing Information: Poor, due to alteration in thoughts, Poor , due to altered mood, Poor, due to cognitve impairment - Speech Speech: Disorganized - Mood Mood: Depressed, Anxious - Formal Thought Process Formal Thought Process: Hallucinations, Delusions, Paranoia - Hallucinations/Delusions Delusions: Persecution - Obsessions/Compulsions Obsessions: None Compulsions: None - Cognitive Functions Orientation: Person Sensorium: Drowsy Attention/Concentration: Easily distracted Abstract Thinking: [place] Estimate of Intelligence: Below average Judgement: Intact, as evidence by: Insight regarding need for hospitalization - Risk Risk: Suicidal, Withdrawal, Self-mutilation, Diminished functioning - Strength & Assets Inventory Strength & Assets Inventory: Cooperative - Limitations Limitations: Other (substance abuse and noncompliance with meds and f/u) DSM 5 DX - DSM 5 DSM 5 Diagnosis: psychosis nos r/o substance induced psychosis opioid addiction opioid withdrawals r/o mdd - Recommended/Plan of Treatment Treatment Recommendations and Plan of Treatment: Milieu/structure/supportive therapy Medical consult appreciated, see medical team note for more detailed info SW consultation for discharge plan and social issues Med management: PRN for opioid withdrawals celexa for depression seroquel for psychosis ambien for insomnia Family involvement Follow up on labs Will monitor closely Pt was educated about risk/benefits and alternatives of medications, coping strategies (safety plan, suicide prevention), relapse prevention, importance of follow up with psychiatrist and therapist, stay away from drugs/alcohol/smoking Projected ELOS: 7days Prognosis: guarded Discharge Plan and Discharge Criteria: Pt will be not depressed or manic, will be more hopeful, will be not psychotic or anxious, will be not having thoughts of harming self or others, will be tolerating medications well, will not have major side effects, will be able to function, will not pose threat to self or others. - Smoking Cessation Smoking Cessation Initiated: Yes
[2017-07-31 06:59] VITALS: RESP 20
--- NOTE | 2017-07-31 08:26 | CP.PCM.CON ---
History of Present Illness - History of Present Illness History of Present Illness: Medicine Consult note Reason for Consult- Mouth abscess, medical evaluation 26M w/ pmhx significnat for hepatitis C, suicidal ideation in the past, polysubtance abuse presents to [facility] with suicidal ideation. Currently denies homocidal ideation. Currently complaining of some mouth pain over the last 3 days, an "abscess" that he has found. Previously went to the dentist within the last 2 weeks and was given Tylenol and perocet. No procedures were performed during that time. Patient states feel the abscess is currently draining. Able to eat and drink without current issues. Subjective fevers. Denies chills. No erythema or cellulite changes around the maxilla. Location is upper third on the right. Denies: chest pain, shortness of breath, nausea, vomiting, changes in urinary habits, diaphoretic. PMHx: Hepatitis C, polysubtance abuse, SI Surg: Denied All: NKDA SH: Admits to heavy EtOH use (Bridgette), 2 ppd tobacco use, and IV heroin use Meds: Denied FHx: non-contributory Review of Systems - Review of Systems All systems: reviewed and no additional remarkable complaints except - Constitutional Constitutional: As Per HPI Past Patient History - Infectious Disease Hx of Infectious Diseases: None - Past Medical History & Family History Past Medical History?: Yes - Past Social History Smoking Status: Current Some Days Smoker - CARDIAC Hx Cardiac Disorders: No - PULMONARY Hx Respiratory Disorders: No - NEUROLOGICAL Hx Neurological Disorder: No - HEENT Hx HEENT Problems: No - RENAL Hx Chronic Kidney Disease: No - ENDOCRINE/METABOLIC Hx Endocrine Disorders: No - HEMATOLOGICAL/ONCOLOGICAL Hx Blood Disorders: No - INTEGUMENTARY Hx Dermatological Problems: No - MUSCULOSKELETAL/RHEUMATOLOGICAL Hx Musculoskeletal Disorders: No - GASTROINTESTINAL Hx Gastrointestinal Disorders: No - GENITOURINARY/GYNECOLOGICAL Hx Genitourinary Disorders: No - PSYCHIATRIC Hx Psychophysiologic Disorder: No Hx Anxiety: Yes Hx Bipolar Disorder: Yes Hx Depression: Yes Hx Emotional Abuse: No Hx Physical Abuse: No Hx Schizophrenia: No Hx Sexual Abuse: No Hx Substance Use: Yes (heroin/cocaine/opiate/marijuana) - SURGICAL HISTORY Hx Surgeries: No - ANESTHESIA Hx Anesthesia: No Meds Allergies/Adverse Reactions: Allergies Allergy/AdvReac Type Severity Reaction Status Date / Time No Known Allergies Allergy Verified 07/30/17 00:58 - Medications Medications: Current Medications Acetaminophen (Tylenol 325mg Tab) 650 mg PO Q6H PRN PRN Reason: Pain, moderate (4-7) Al Hydrox/Mg Hydrox/Simethicone (Maalox Plus 30 Ml) 30 ml PO DAILY PRN PRN Reason: Indigestion / Heartburn Citalopram Hydrobromide (Celexa) 10 mg PO DAILY [facility] Last Admin: 07/31/17 08:14 Dose: 10 mg Clonidine HCl (Catapres) 0.1 mg PO Q12 PRN PRN Reason: Opiate Withdrawal Last Admin: 07/30/17 14:59 Dose: 0.1 mg Lorazepam (Ativan) 2 mg PO Q6H PRN; Protocol PRN Reason: alcohol withdrawal or anxiety Last Admin: 07/31/17 03:19 Dose: 2 mg Lorazepam (Ativan) 2 mg IM Q6H PRN; Protocol PRN Reason: SEVERE AGITATION Last Admin: 07/30/17 18:20 Dose: 2 mg Magnesium Hydroxide (Milk Of Magnesia) 30 ml PO DAILY PRN PRN Reason: Constipation Nicotine (Nicoderm Cq) 1 patch TD DAILY [facility] Last Admin: 07/31/17 08:16 Dose: 1 patch Ondansetron HCl (Zofran Odt) 4 mg PO Q8H PRN PRN Reason: Nausea/Vomiting Last Admin: 07/31/17 03:20 Dose: 4 mg Quetiapine Fumarate (Seroquel) 25 mg PO BID [facility] PRN Reason: Protocol Last Admin: 07/31/17 08:16 Dose: 25 mg Quetiapine Fumarate (Seroquel) 50 mg PO HS [facility] PRN Reason: Protocol Last Admin: 07/30/17 23:48 Dose: Not Given Tramadol HCl (Ultram) 50 mg PO TID [facility] Last Admin: 07/31/17 08:14 Dose: 50 mg Ziprasidone (Geodon Inj) 20 mg IM Q6H PRN; Protocol PRN Reason: Agitation/psychosis Last Admin: 07/30/17 18:20 Dose: 20 mg Ziprasidone (Geodon Cap) 20 mg PO Q6H PRN; Protocol PRN Reason: agitation/psychosis Zolpidem Tartrate (Ambien) 10 mg PO HS PRN; Protocol PRN Reason: Insomnia Physical Exam - Constitutional Appears: Non-toxic, No Acute Distress - Head Exam Head Exam: ATRAUMATIC Additional comments: very poor dental hygiene - Eye Exam Eye Exam: EOMI - ENT Exam Additional comments: poor dentition - Neck Exam Additional comments: no palpable cervical lymp nodes no signs of erythema or cellulitc changes around the maxilla, no warmth. Fluctuant mass palpated on the inside around the upper right cainine. No palpable spread or induration superior, or supercially. some maxially tenderness No mastoid tenderness - Respiratory Exam Respiratory Exam: Clear to Auscultation Bilateral. absent: Accessory Muscle Use , Chest Wall Tenderness, Rales, Rhonchi, Stridor - Cardiovascular Exam Cardiovascular Exam: +S1, +S2. absent: Bradycardia, Tachycardia - GI/Abdominal Exam GI & Abdominal Exam: Soft. absent: Distended, Firm, Rebound, Rigid, Tenderness - Extremities Exam Extremities exam: Positive for: normal inspection. Negative for: calf tenderness, tenderness - Neurological Exam Neurological exam: Alert, Oriented x3 - Skin Skin Exam: Intact Results - Vital Signs Recent Vital Signs: Last Vital Signs Temp 97.8 F 07/31/17 06:58 Pulse 63 07/31/17 06:58 Resp 20 07/31/17 06:58 BP 127/77 07/31/17 06:58 Pulse Ox 99 07/30/17 05:45 - Labs Result Diagrams: 07/30/17 02:10 07/30/17 02:10 Labs: Laboratory Results - last 24 hr 07/30/17 07/30/17 07/30/17 06:39 06:40 06:40 Triglycerides 70 Cholesterol 116 L LDL Cholesterol Direct 58 HDL Cholesterol 38 TSH 3rd Generation 0.92 RPR Nonreactive Assessment & Plan - Assessment and Plan (Free Text) Assessment: 27M pmhx HepC polysubstance admitted w/ sucideal ideation; medicine consulted for Right upper peridental abscess No signs of erythema or cellulitic changes of the superficial soft tissue around the mouth, axilla or eyes. No respiratory distress. Plan: Suicidal Ideation - Defer treatment plan to psych - Continue psych medications Eve-Dental abscess - PO Abx- Clindamycin - no need for further imaging indicated at this time - counselled and encourage good dental hygiene - recommend follow up as an outpatient with a dentist; recommend [facility] Alcohol abuse - Counselled pt on risks of EtOH use and advised cessation H/o Hepatitis C, abdominal pain - Regular diet - Elevated LFT's- baseline LFT - Protonix PO PPx - Ambulate Discussed with Dr. Hensley Medical attending PGY1
[2017-07-31] MEDS ORDERED: Amoxicillin-Clav 875-125 mg Tab PO SCH (09:15)
[2017-07-31] MEDS ORDERED: Tmp-Smz 400 mg-80 mg SS Tab PO SCH (12:00)
--- NOTE | 2017-07-31 16:10 | PCM.PYCHPN ---
Psychiatric Progress Note - Psychiatric Progress Note Patient seen today, length of contact: 30min Patient Chief Complaint: "I don't feel good, I was using 50 bags of heroin a day, what?....i need to be on methadone" Problems Identified/Issues Discussed: Pt will be not depressed or manic, will be more hopeful, will be not psychotic or anxious, will be not having thoughts of harming self or others, will be tolerating medications well, will not have major side effects, will be able to function, will not pose threat to self or others. Medical Problems: opioid withdrawals tooth infection Diagnostic Results: 07/30/17 02:10 07/30/17 02:10 Lab Results 07/30/17 06:40: RPR Nonreactive 07/30/17 06:40: TSH 3rd Generation 0.92 07/30/17 06:39: Triglycerides 70, Cholesterol 116 L, LDL Cholesterol Direct 58, HDL Cholesterol 38 07/30/17 04:18: Urine Opiates Screen Positive H, Urine Methadone Screen Negative , Ur Barbiturates Screen Negative, Ur Phencyclidine Scrn Negative, Ur Amphetamines Screen Negative, U Benzodiazepines Scrn Negative, U Oth Cocaine Metabols Positive H, U Cannabinoids Screen Positive H 07/30/17 04:18: Urine Color Yellow, Urine Appearance Clear, Urine pH 6.0, Ur Specific [place] >= 1.030, Urine Protein Trace H, Urine Glucose (UA) Negative, Urine Ketones Negative, Urine Blood Negative, Urine Nitrate Negative, Urine Bilirubin Negative, Urine Urobilinogen 2.0 H, Ur Leukocyte Esterase Negative, Urine RBC 0 - 2, Urine WBC 2 - 5, Ur Epithelial Cells 0 - 2, Urine Bacteria Rare 07/30/17 02:10: Alcohol, Quantitative < 10 07/30/17 02:10: Salicylates < 1 L, Acetaminophen < 10.0 L 07/30/17 02:10: Sodium 142, Potassium 4.1, Chloride 100, Carbon Dioxide 31, Anion Gap 15, BUN 11, Creatinine 0.8, Est GFR ( Amer) > 60, Est GFR (Non- Af Amer) > 60, Random Glucose 110, Calcium 9.0, Magnesium 2.2, Total Bilirubin 0.5, AST 79 H D, ALT 145 H, Alkaline Phosphatase 57, Total Protein 7.5, Albumin 4.0, Globulin 3.6, Albumin/Globulin Ratio 1.1 07/30/17 02:10: WBC 7.6, RBC 4.99, Hgb 13.5 L D, Hct 37.1 L, MCV 74.3 L, MCH 27.1, MCHC 36.4, RDW 13.9, Plt Count 176, MPV 9.8, Gran % 43.7 L, Lymph % (Auto ) 47.3 H, [place] % (Auto) 7.4 H, Eos % (Auto) 1.3 L, Baso % (Auto) 0.3, Gran # 3.30, Lymph # (Auto) 3.6 H, [place] # (Auto) 0.6, Eos # (Auto) 0.1, Baso # (Auto) 0.02 Vital Signs Temp Pulse Pulse Resp BP Pulse Ox 07/31/17 06:58 97.8 F 63 20 127/77 07/30/17 19:28 63 137/94 H 07/30/17 15:00 97.8 F 63 17 137/94 H 07/30/17 14:59 63 137/94 H 07/30/17 08:00 64 20 07/30/17 06:10 97.9 F 64 20 109/72 07/30/17 05:45 99 07/30/17 03:35 82 20 105/70 98 07/30/17 01:08 98.2 F 79 16 98/61 L 97 DSM 5 Symptoms Update: shortly pt is a 26 year old male with history of depression and opiate dependency who presented to the emergency department for suicidal ideation in context of ongoing IV heroin use/withdrawals, pt also reported hearing voices, telling him to harm self, pt has chronic noncompliant with medications and follow up appts, pt was d/c from this unit 10/12/16 AMA. pt requires further evaluation and stabilization, meds initiation and titration, pt in high risk of harming self in context of drug use/withdrawals, will need observation and stabilization. pt was seen at the treatment team, hygiene is marginal, no eye contact, pt was irritable, angry, was demanding to be on methadone, pt was advised that this is not detox facility, all PRN orders discussed, pt submitted 48hr notice yesterday at approximately 6pm, pt refused to rescinded, "I will keep as it is, I want to see if your pills are working...", pt was advised that he needs to stay in the hospital for further evaluation and stabilization, but pt was not receptive. pt has tooth infection for what medical team started abx, educated pt that he needs to f/u with dental office after d/c, pt said "I know that already" pt has low education level/attitude/withdrawals which made the tx plan and options difficult, as of now pt is not agitated or aggressive. pt said that he was drinking daily, Ativan joe started +MVI, thiamine and folic acid. Impression: r/o MDD r/o substance induced mood disorder opioid use disorder with withdrawals alcohol use disorder Medication Change: Yes Medical Record Reviewed: Yes Consults ordered or reviewed: medical consult appreciated Mental Status Examination - Cognitive Function Orientation: Person Memory: Impaired Attention: Poor Concentration: Poor Association: Loose Fund of Knowledge: Poor - Mood Mood: Depressed, Anxious - Affect Affect: Flat - Formal Thought Process Formal Thought Process: No Impairment (patient denied but presented withdisorganized thought process) - Suicidal Ideation Suicidal Ideation: No - Homicidal Ideation Homicidal Ideation: No Goal/Treatment Plan - Goal/Treatment Plan Need for Continued Stay: Remain at risks for inpatient hospitalization, Severe depression anxiety, Discharge may exacerbated symptoms, Failed transitioning, Severe functional impairment Progress Toward Problem(s) and Goals/Treatment Plan: Milieu/structure/supportive therapy Medical consult appreciated, see medical team note for more detailed info SW consultation for discharge plan and social issues Med management: PRN for opioid withdrawals celexa 20 mg for depression seroquel 100 twice a dayfor psychosis Ativan 2 mg 4 times a day for alcohol withdrawal symptoms with a plan to wean it off safely ambien 5 mg for insomnia Family involvement Follow up on labs Will monitor closely Pt was educated about risk/benefits and alternatives of medications, coping strategies (safety plan, suicide prevention), relapse prevention, importance of follow up with psychiatrist and therapist, stay away from drugs/alcohol/smoking patient submitted 48 hour notice yesterday at 6 PM, refused to rescinded it, plan is to evaluate pt at am, if pt meets a criteria for screening- call [facility], if not AMA. Estimated Date of D/C: 08/04/17
--- NOTE | 2017-08-01 03:34 | PCM.FALL ---
<Peggy Iglesias - Last Filed: 08/01/17 06:03> Post Fall Progress Note - Post Fall Fall Date: 08/01/17 Fall Time: 03:20 Description of Fall: Patient had a witnessed fall, per nursing patient came to the nursing station asking for water. After he finished drinking water he unexpectedly fell backwards on his back. Per nursing it sounded like he hit the back of his head. [facility] was called. Prior to the fall, on his way out of his room to get water , patient states that he hit his forehead on the wall. Patient received Ativan 2mg, Geodon 20mg at approximately 2am. He also received Tylenol 650mg PO x 1. - Post Fall Exam Vital Sign: Temp Pulse Resp BP Pulse Ox 97.8 F 63 20 127/77 99 07/31/17 06:58 07/31/17 06:58 07/31/17 06:58 07/31/17 06:58 07/30/17 05:45 Eye Exam: Positive for: Pupils equal, Pupils reactive Ear Exam: Negative for: Discharge, Bleeding Nose Exam: Negative for: Discharge, Bleeding Skin Exam: Positive for: Lacerations (Small laceration above the right eyebrow) Mouth Exam: Negative for: Tongue bitten, Teeth dislodge Neck Exam: Negative for: Tenderness, Tingling, Weakness Spinal Exam: Negative for: Tenderness, Tingling, Weakness Chest Exam: Negative for: Difficulty breathing, Tenderness in collar bones, Tenderness in ribs Abdomen Exam: Negative for: Tenderness Pelvic Exam: Negative for: Tenderness Arm Exam: Negative for: Deformity, Alteration in range of movement Leg Exam: Negative for: Deformity, Alteration in range of movement Other pertinent findings: Gen: Agitated, comabtive, sleepy Head: Small laceration above right eyebrow Cardiac: RRR, S1 S2, no murmurs Respiratory: CTA B/L, no wheezing, rales, rhonchi Back: No bruises appreciated Extremities: Full ROM in both upper and lower extremities Impression/Plan: Patient is a 27 year old male, whose past medical history includes depression and IV drug abuse, who presented to the Emergency department complaining of depression and suicidal ideation. He is currently being treated for depression and opioid use disorder. -Vital signs stable, afebrile -Will order CT head STAT -Ambulate with assistance -Plan discussed with Dr Lyle Iglesias DO PGY-1 <Marguerite Alvarenga - Last Filed: 08/01/17 07:16> Post Fall Progress Note - Post Fall Exam Vital Sign: Temp Pulse Resp BP Pulse Ox 98.5 F 75 20 99/66 L 99 08/01/17 06:29 08/01/17 06:29 08/01/17 06:29 08/01/17 06:29 07/30/17 05:45 Attending/Attestation - Attestation I have personally seen and examined this patient.: Yes I have fully participated in the care of the patient.: Yes I have reviewed all pertinent clinical information, including history, physical exam and plan: Yes Notes (Text): 08/01/17 07:09 Laceration above R eyebrow is about 1/4'' long. No active bleeding noted. Cat scan of the head with no contrast was ordered,pt was not co operative for this,he refused.
[2017-08-01] MEDS ORDERED: Multivitamin With Minerals Tab PO SCH (08:00)
--- NOTE | 2017-08-01 10:03 | PCM.PYCHPN ---
Psychiatric Progress Note - Psychiatric Progress Note Patient seen today, length of contact: 25 min Problems Identified/Issues Discussed: Patient is a 26 year old male with history of depression and opiate dependency, +prior psychiatric admissions (pt was d/c from this unit 10/12/16 AMA), chronic noncompliance with medications and outpatient treatment who presented to the emergency department with suicidal ideation and CAH telling him to harm self in context of ongoing IV heroin use/withdrawals. Patient has been difficult and unpredictable on the unit. Behavior is labile and he is generally not receptive to treatment team/staff requests and recommendations. Patient put in a 48 hour letter on 07/30/17 and refused to sign treatment plan during treatment team meeting on 07/31/17. He also refused to retract 48 hour letter indicating that he wanted to see how well his medications would work. Overnight notes indicate that patient unexpectedly fell backwards at 3:20 AM at the nurses station. [facility] called. Resident Dr Iglesias, Dr Spangler and Nursing X Ray Service Engineer responded to call. Apparently patient was uncooperative and combative with staff during attempts to assess him but did mention that he struck his forehead on the wall otw to the nurses station prior to his fall otw back from the nurses station. Overnight notes indicate that patient was alert, orientedX3 and denied any pain stating only that he wanted to sleep. No bruises were noted on body, except for a cut on the upper right eyebrow. Vitals at the time were: BP 102/57, Pulse 73. Resident ordered CAT Scan of the head STAT. Patient accompanied off unit with PCP and security at 03:45. [facility] indicated that patient refused scan despite multiple requests. Patient ultimately returned to the unit at 3:57 AM. Patient was put on 1:1 for fall precautions. I met with patient at bedside this morning. He slowly becomes more attentive with my questioning and information presented to him. Patient was warned about the possibility of slow bleeding in his brain resulting from his fall and that his may result in his if not diagnosed and treated. Patient appeared to be listening and indicated he understood these risks. Otherwise he was not responding in any other meaningful way to this information. I asked him about his comfort level and he denied any new discomfort or pain. He is oriented x3 and indicates that he still wants to leave. Denies hallucinations, SI or HI. Responses are relevant to questioning but quite brief and disengaged. He was not observed to be responding to internal stimuli. Behavior remains unpredictable and impulsive. Diagnostic Results: r/o MDD r/o substance induced mood disorder opioid use disorder with withdrawals alcohol use disorder DSM 5 Symptoms Update: r/o MDD r/o substance induced mood disorder opioid use disorder with withdrawals alcohol use disorder Medication Change: Yes Medical Record Reviewed: Yes Mental Status Examination - Cognitive Function Orientation: Person Memory: Impaired Attention: Poor Concentration: Poor Association: Loose Fund of Knowledge: Poor - Mood Mood: Depressed, Anxious - Affect Affect: Flat - Formal Thought Process Formal Thought Process: No Impairment (patient denied but presented withdisorganized thought process) - Suicidal Ideation Suicidal Ideation: No - Homicidal Ideation Homicidal Ideation: No Goal/Treatment Plan - Goal/Treatment Plan Need for Continued Stay: Remain at risks for inpatient hospitalization, Severe depression anxiety, Discharge may exacerbated symptoms, Failed transitioning, Severe functional impairment Progress Toward Problem(s) and Goals/Treatment Plan: * c/w current tx and plan * Patient put in 48 hour notice on 07/30/17 at 6pm. He refused to sign treatment plan or retract notice during treatment team meeting on 07/31/17 indicating that he will remain hospitalized if medications are effective. Requested [place] [facility] [place], patient remains unpredictable with poor I/J * c/w Ativan 2 mg QID to TID for alcohol withdrawal symptoms, c/w taper as tolerated * No new weekend labs thus far. Will continue to try and elicit patient's cooperation with CT imaging s/p fall earlier this morning. * Vitals reviewed and noted below: Selected Entries 07/30/17 07/30/17 07/31/17 15:00 19:28 06:58 Temperature 97.8 F 97.8 F Pulse Rate 63 63 63 Respiratory 17 20 Rate Blood Pressure 137/94 H 137/94 H 127/77 Estimated Date of D/C: 08/04/17 - Smoking Cessation Smoking Cessation Initiated: No
[2017-08-01 12:13] VITALS: BP 132/77; PULSE 116; TEMP 98.4
--- NOTE | 2017-08-02 19:09 | PCM.PYCHDC ---
Mental Status Examination - Mental Status Examination Orientation: Person, Place, Situation Memory: Impaired Mood: Neutral Affect: Broad Speech: Appropriate Attention: WNL Concentration: Poor Association: WNL Fund of Knowledge: Poor Formal Thought Process: No Impairment Suicidal Ideation: No Current Homicidal Ideation?: No Discharge Summary - Discharge Note Reason for Hospitalization: Patient is a 26 year old male with history of depression and opiate dependency, +prior psychiatric admissions (pt was d/c from this unit 10/12/16 AMA), chronic noncompliance with medications and outpatient treatment who presented to the emergency department with suicidal ideation and CAH telling him to harm self in context of ongoing IV heroin use/withdrawals. Psychiatric History (includes Medical, Family, Personal Hx): see HPI Laboratory Data: Laboratory Tests 07/30/17 07/30/17 07/30/17 02:10 02:10 02:10 WBC 7.6 RBC 4.99 Hgb 13.5 L D Hct 37.1 L MCV 74.3 L MCH 27.1 MCHC 36.4 RDW 13.9 Plt Count 176 MPV 9.8 Gran % 43.7 L Lymph % (Auto) 47.3 H [place] % (Auto) 7.4 H Eos % (Auto) 1.3 L Baso % (Auto) 0.3 Gran # 3.30 Lymph # (Auto) 3.6 H [place] # (Auto) 0.6 Eos # (Auto) 0.1 Baso # (Auto) 0.02 Sodium 142 Potassium 4.1 Chloride 100 Carbon Dioxide 31 Anion Gap 15 BUN 11 Creatinine 0.8 Est GFR ( Amer) > 60 Est GFR (Non-Af Amer) > 60 Random Glucose 110 Calcium 9.0 Magnesium 2.2 Total Bilirubin 0.5 AST 79 H D ALT 145 H Alkaline Phosphatase 57 Total Protein 7.5 Albumin 4.0 Globulin 3.6 Albumin/Globulin Ratio 1.1 Triglycerides Cholesterol LDL Cholesterol Direct HDL Cholesterol TSH 3rd Generation Urine Color Urine Appearance Urine pH Ur Specific [place] Urine Protein Urine Glucose (UA) Urine Ketones Urine Blood Urine Nitrate Urine Bilirubin Urine Urobilinogen Ur Leukocyte Esterase Urine RBC Urine WBC Ur Epithelial Cells Urine Bacteria Salicylates < 1 L Urine Opiates Screen Urine Methadone Screen Acetaminophen < 10.0 L Ur Barbiturates Screen Ur Phencyclidine Scrn Ur Amphetamines Screen U Benzodiazepines Scrn U Oth Cocaine Metabols U Cannabinoids Screen Alcohol, Quantitative RPR 07/30/17 07/30/17 07/30/17 02:10 04:18 04:18 WBC RBC Hgb Hct MCV MCH MCHC RDW Plt Count MPV Gran % Lymph % (Auto) [place] % (Auto) Eos % (Auto) Baso % (Auto) Gran # Lymph # (Auto) [place] # (Auto) Eos # (Auto) Baso # (Auto) Sodium Potassium Chloride Carbon Dioxide Anion Gap BUN Creatinine Est GFR ( Amer) Est GFR (Non-Af Amer) Random Glucose Calcium Magnesium Total Bilirubin AST ALT Alkaline Phosphatase Total Protein Albumin Globulin Albumin/Globulin Ratio Triglycerides Cholesterol LDL Cholesterol Direct HDL Cholesterol TSH 3rd Generation Urine Color Yellow Urine Appearance Clear Urine pH 6.0 Ur Specific [place] >= 1.030 Urine Protein Trace H Urine Glucose (UA) Negative Urine Ketones Negative Urine Blood Negative Urine Nitrate Negative Urine Bilirubin Negative Urine Urobilinogen 2.0 H Ur Leukocyte Esterase Negative Urine RBC 0 - 2 Urine WBC 2 - 5 Ur Epithelial Cells 0 - 2 Urine Bacteria Rare Salicylates Urine Opiates Screen Positive H Urine Methadone Screen Negative Acetaminophen Ur Barbiturates Screen Negative Ur Phencyclidine Scrn Negative Ur Amphetamines Screen Negative U Benzodiazepines Scrn Negative U Oth Cocaine Metabols Positive H U Cannabinoids Screen Positive H Alcohol, Quantitative < 10 RPR 07/30/17 07/30/17 07/30/17 06:39 06:40 06:40 WBC RBC Hgb Hct MCV MCH MCHC RDW Plt Count MPV Gran % Lymph % (Auto) [place] % (Auto) Eos % (Auto) Baso % (Auto) Gran # Lymph # (Auto) [place] # (Auto) Eos # (Auto) Baso # (Auto) Sodium Potassium Chloride Carbon Dioxide Anion Gap BUN Creatinine Est GFR ( Amer) Est GFR (Non-Af Amer) Random Glucose Calcium Magnesium Total Bilirubin AST ALT Alkaline Phosphatase Total Protein Albumin Globulin Albumin/Globulin Ratio Triglycerides 70 Cholesterol 116 L LDL Cholesterol Direct 58 HDL Cholesterol 38 TSH 3rd Generation 0.92 Urine Color Urine Appearance Urine pH Ur Specific [place] Urine Protein Urine Glucose (UA) Urine Ketones Urine Blood Urine Nitrate Urine Bilirubin Urine Urobilinogen Ur Leukocyte Esterase Urine RBC Urine WBC Ur Epithelial Cells Urine Bacteria Salicylates Urine Opiates Screen Urine Methadone Screen Acetaminophen Ur Barbiturates Screen Ur Phencyclidine Scrn Ur Amphetamines Screen U Benzodiazepines Scrn U Oth Cocaine Metabols U Cannabinoids Screen Alcohol, Quantitative RPR Nonreactive Consultations:: List each consultation separately and include: 1. Reason for request. 2. Findings. 3. Follow-up Consultations: Overnight notes indicate that patient unexpectedly fell backwards at 3:20 AM at the nurses station on Thursday morning 08/01/17. [facility] called. Resident Dr Iglesias, Dr Spangler and Nursing In Store Demonstrator responded to call. Apparently patient was uncooperative and combative with staff during attempts to assess him but did mention that he struck his forehead on the wall otw to the nurses station prior to his fall otw back from the nurses station. Overnight notes indicate that patient was alert, orientedX3 and denied any pain stating only that he wanted to sleep. No bruises were noted on body, except for a cut on the upper right eyebrow. Vitals at the time were: BP 102/57, Pulse 73. Resident ordered CAT Scan of the head STAT. Patient accompanied off unit with PCP and security at 03:45. [facility] that patient refused scan despite multiple requests. Patient ultimately returned to the unit at 3:57 AM. Patient was put on 1:1 for fall precautions. Patient also had consult with Dr. Batista. Summary of Hospital Course include:: 1. Description of specific treatment plan utilized for patients during their course of treatmen. 2. Summarize the time- course for resolution of acute symptoms and/or regressed behaviors. 3. Describe issues identified and worked on during hospitalization. 4. Describe medication utilized. 5. Describe medical problems identified and treated. 6. Reassessment of suicide risk Summary of Hospital Course: Patient is a 26 year old male with history of depression and opiate dependency, +prior psychiatric admissions (pt was d/c from this unit 10/12/16 AMA), chronic noncompliance with medications and outpatient treatment who presented to the emergency department with suicidal ideation and CAH telling him to harm self in context of ongoing IV heroin use/withdrawals. Patient was difficult and unpredictable on the unit. Behavior was labile and he generally was not receptive to treatment team/staff requests and recommendations. Patient put in a 48 hour letter on 07/30/17 and refused to sign treatment plan during treatment team meeting on 07/31/17. He also refused to retract 48 hour letter indicating that he wanted to see how well his medications would work. Overnight notes indicate that patient unexpectedly fell backwards at 3:20 AM at the nurses station on Thursday morning. [facility] called. Resident Dr Iglesias, Dr Spangler and Nursing In Store Demonstrator responded to call. Apparently patient was uncooperative and combative with staff during attempts to assess him but did mention that he struck his forehead on the wall otw to the nurses station prior to his fall otw back from the nurses station. Overnight notes indicate that patient was alert, orientedX3 and denied any pain stating only that he wanted to sleep. No bruises were noted on body, except for a cut on the upper right eyebrow. Vitals at the time were: BP 102/57, Pulse 73. Resident ordered CAT Scan of the head STAT. Patient accompanied off unit with PCP and security at 03:45. [facility] [place] indicated that patient refused scan despite multiple requests. Patient ultimately returned to the unit at 3:57 AM. Patient was put on 1:1 for fall precautions. I met with patient at bedside in the AM on Thursday. He slowly becomes more attentive with my questioning and information presented to him. Patient was warned about the possibility of having slow bleeding resulting from his fall and that his may result in his if not diagnosed and treated. Patient appeared to be listening but he was not responding in any meaningful way to this information. I asked him about his comfort level and he denied any new discomfort or pain. He is oriented x3 and indicates that he still wants to leave. Denies hallucinations, SI or HI. Responses are relevant to questioning but quite brief and disengaged. He was not observed to be responding to internal stimuli. Patient was seen by [facility] screeners on 08/01/17. They did not feel he met criteria for involuntary commitment. Patient refused to retract his 48 hour letter and he was ultimately discharged AMA. - Final Diagnosis (DSM 5) Condition upon Discharge: GOOD DSM 5: r/o MDD r/o substance induced mood disorder opioid use disorder with withdrawals alcohol use disorder Disposition: AGAINST MEDICAL ADVICE Follow-up Treatment Plan: * Patient put in 48 hour notice on 07/30/17 at 6pm. He refused to sign treatment plan or retract notice during treatment team meeting on 07/31/17 indicating that he will remain hospitalized if medications are effective. Patient refused to retract 48 hour letter. Requested screening by [facility] for [place], however they determined the didn't meet criteria. and he was discharged on AMA without RX or f/u. - Smoking Cessation Smoking Cessation Medication prescribed: No Reason for not providing: ama - Antipsychotic Medications Pt discharged on 2 or more routine antipsychotic medications: No
== END 2017-08-01 15:59 | disposition left against medical advice (07) | DRG 881 ==
LOC: ED 00:47 → ERH 04:42 → PSYC 06:01
PROVIDERS: ADMIT Psychiatry & Neurology Psychiatry; ATTEND Psychiatry & Neurology Psychiatry
DX: F32.9 Major depressive disorder, single episode, unspecified (principal); F11.20 Opioid dependence, uncomplicated; F10.239 Alcohol dependence with withdrawal, unspecified; R45.851 Suicidal ideations; F10.20 Alcohol dependence, uncomplicated; F19.24 Other psychoactive substance dependence with psychoactive substance-induced mood disorder; F17.210 Nicotine dependence, cigarettes, uncomplicated; F29 Unspecified psychosis not due to a substance or known physiological condition; K04.7 Periapical abscess without sinus; W19.XXXA Unspecified fall, initial encounter; Z79.899 Other long term (current) drug therapy; Z91.14 Patient's other noncompliance with medication regimen; Y92.238 Other place in hospital as the place of occurrence of the external cause